=== PATIENT | female | born 1950 | race Caucasian/White ===

== ENCOUNTER 2024-06-03 00:38 | Day surgery (SDC) | payer MEDICARE, SELFPAY ==
[2024-05-05 15:23] VITALS: BMI 31.8
--- NOTE | 2024-05-05 15:44 | PC.NURSE ---
Addendum entered by Awilda Craven RN 05/20/24 13:59: Pt called with new date and time of rescheduled surgery for 09:00am arrival on 06/03/24 and surgery at 11:00am. No medication or status changes since last assessment. Patients may have clear liquids (water, carbonated beverages, clear teas, apple juice) until 3 hours prior to surgery with a maximum of 20 ounces. - No food from midnight until time of surgery and no smoking. This includes no chewing gum, candy or mints. (0800am) \ Take only the following medications with a SIP of water on the morning of surgery: Buspirone, Duloxetine and Metoprolol DO NOT STOP ANY OF YOUR OTHER PRESCRIPTION MEDICATIONS PRIOR TO SURGERY EXCEPT THE FOLLOWING Medications to discontinue per physician Hold all vitamins and supplements for [address] Taveras Date to take last dose 05/26/24 Original Note: Report to the Outpatient Waiting Room, entrance under the green pavilion located off [facility], at time on date . Planned Procedure Time: .? Time changes happen often and if your time is changed the preop area will call you the afternoon before. - You and your visitor will be asked to self-screen and do not enter if you have any COVID symptoms. Please call surgeon if you need to reschedule. - A mask is optional within the hospital at this time. Patients may have clear liquids (water, carbonated beverages, clear teas, apple juice) until 3 hours prior to surgery with a maximum of 20 ounces. - No food from midnight until time of surgery and no smoking. This includes no chewing gum, candy or mints. (0830am) \ Take only the following medications with a SIP of water on the morning of surgery: Busprione, Duloxetine and Metoprolol DO NOT STOP ANY OF YOUR OTHER PRESCRIPTION MEDICATIONS PRIOR TO SURGERY EXCEPT THE FOLLOWING Medications to discontinue per physician Hold all vitamins and supplements for [address] Taveras Date to take last dose 05/12/24 Please no make-up, nail eritrean, hairspray, perfume, deodorant, or body powder the day of surgery.? No jewelry (including any body piercings) or valuables the day of surgery, leave them at home.? Please take a shower or bath the night before, or the morning of, surgery with an antibacterial soap.? Wear comfortable, loose fitting clothing.? - Jewelry must be removed prior to entering the operating room.? Rings and piercings that are not removed may be cut off. - The hospital will not accept responsibility for valuables.? - Please leave all valuables, including medications, at home the day of surgery. If you are going home after surgery, a licensed fence post driver must drive you home.? - NO public transportation without another adult if you receive anesthesia. - We recommend that an adult stay with you for 24 hours following discharge. - We also recommend that you do not drive, make important decision, drink alcoholic beverages, or take any drugs that were not prescribed by your health care provider for at least 24 hours after your discharge time. Follow any additional instructions given to you from your surgeon. Telephone instructions given to __Patient and asked if any additional questions and then verbalized understanding. Patient advised to call surgeon office or pre surgery nurse liaison [phone] if any additional questions.
--- NOTE | 2024-05-13 20:44 | PM.IMHP ---
H&P: HPI History of Present Illness Date/Time: 05/13/24 20:44 Chief Complaint: mixed UI Narrative: treatment to ISD Review of Systems Review of Systems: All systems reviewed & are unremarkable except as noted in HPI and below PMFSH Social History Social History Smoking packs per day: 1 Smoking cigarettes per day: 20.0 Years smoked: 40 Smoking pack-years: 40.00 Smoking status: Former smoker Substance use: never Living arrangements: alone Spiritual care concerns: No Meds Home Medications and Allergies Home Medications ?Medication ?Instructions ?Recorded ?Confirmed ?Type acetaminophen 650 mg 1,300 mg PO Q12H PRN pain 05/05/24 05/05/24 History tablet,extended release (8 Hour Pain Reliever) bupropion HCl 150 mg 24 hr tablet, 150 mg PO DAILY 05/05/24 05/05/24 History extended release bupropion HCl 300 mg 24 hr tablet, 300 mg PO DAILY 05/05/24 05/05/24 History extended release docusate sodium 100 mg capsule 100 mg PO DAILY 05/05/24 05/05/24 History (Colace) duloxetine 60 mg capsule,delayed 120 mg PO HS 05/05/24 05/05/24 History release lamotrigine 100 mg tablet 100 mg PO HS 05/05/24 05/05/24 History levothyroxine 25 mcg tablet 25 mcg PO DAILY 05/05/24 05/05/24 History losartan 50 mg tablet 50 mg PO DAILY 05/05/24 05/05/24 History meloxicam 15 mg tablet 15 mg PO DAILY 05/05/24 05/05/24 History metoprolol succinate 100 mg 200 mg PO DAILY 05/05/24 05/05/24 History tablet,extended release 24 hr omeprazole 40 mg capsule,delayed 40 mg PO DAILY 05/05/24 05/05/24 History release pravastatin 20 mg tablet 20 mg PO HS 05/05/24 05/05/24 History solifenacin 10 mg tablet 10 mg PO HS 05/05/24 05/05/24 History Allergies Allergy/AdvReac Type Severity Reaction Status Date / Time morphine Allergy Severe unresponsiv Verified 05/05/24 15:52 e Penicillins Allergy Severe water Verified 05/05/24 15:52 blisters amlodipine Allergy Intermediate Swelling Verified 05/05/24 15:52 cephalexin (From Keflex) Allergy Intermediate rash Verified 05/05/24 15:52 povidone-iodine (From Allergy Intermediate rash Verified 05/05/24 15:52 Betadine) stainless steel Allergy Intermediate infection Verified 05/05/24 15:52 Sulfa (Sulfonamide Allergy Intermediate water Verified 05/05/24 15:52 Antibiotics) blisters erythromycin base Allergy vomiting Verified 05/05/24 15:52 Exam Narrative: NAD A+O x3 normal breathing Assessment and Plan Assessment and plan (1) Intrinsic sphincter deficiency (ISD): Code(s): N36.42 - Intrinsic sphincter deficiency (ISD) Status: Acute Assessment and Plan: cysto/bulking agent
--- NOTE | 2024-06-03 04:39 | WPDHPUPDATE1 ---
History and Physical Update Update Date/Time: 06/03/24 04:39 History and Physical has been reviewed, including an updated exam of the patient. There are NO changes in the patient's condition. Risks, benefits, and alternatives have been discussed and questions answered. Patient agrees to proceed with procedure.
--- OUTSIDE RECORDS SUMMARY | 2024-06-03 06:24 | XMS_ITS | Data Portability ---
Author Organization [facility] Jermaine Kim Address [address] [facility] [address] [facility] [place] [address] Care Team Providers Care Shoe Shanker Name Role Phone JACKELIN SOLIS Transition Coach WAN KURTZ Vocational Trainer SILVANA PURI Orthopedic Surgeon DILIP HAYES Hand Surgeon GABBY JAFFE Primary Care Provider SILVANA Barreto Orthopedic Surgeon [phone] Assessment Encounter Date Assessment Date Assessment LastModified by Organization Details LastModified Time 10/08/2023 10/08/2023 mammogram scheduled. Due for cologuard this fall Not available 10/08/2023 14:38:29 05/13/2024 05/13/2024 [facility]. Katlyn. Not available 05/13/2024 13:19:09 Plan of Treatment Reminders Order Date Submit Date Provider Last Modified By Organization Details Last Modified Time Details Appointments None recorded. Lab urinalysis, complete 2022 023 [facility], [address], [address], [place], [address], 3 13:23:27 lipid panel, serum 2022 023 [facility], [address], [address], [place], [address], 3 13:23:25 CMP, serum or plasma 2022 023 [facility], [address], [address], [place], [address], 3 13:23:26 CBC w/ auto diff 2022 023 [facility] [employer] [facility], [address], [address], [place], [address], 3 13:23:27 TSH + free T4, serum 2022 023 [facility] [employer] [facility], [address], [address], [place], [address], 3 13:23:26 fecal occult blood, immunoassay , stool 2023 024 [facility], [address] [place] [address], [address], [place], [address], 4 03:09:03 herpes simplex, culture, unspecified specimen 2023 024 [facility] [facility], [address], [address], [place], [address], 4 10:57:43 culture, aerobic 2023 024 [facility], [address], [address], [place], [address], 4 15:45:38 noninvasive colorectal cancer DNA + occult blood screening, QL, stool 2023 024 [facility] ([facility]ard Orders Only), [address], [address], [place], [address], 4 11:27:00 influenza virus A + B + SARS-CoV-2 (COVID19) Ag panel, rapid IA, upper respiratory specimen 2024 025 In-Office Order, Internal Use Only DO Not Attach Compendium DO Not Attach Compendium, Do Not Delete/merge, [id number] 5 13:22:10 Referral otolaryngol ogist referral 2023 024 GEORGINA Hanna MD, [address], [place], [address], 4 23:12:50 hand surgeon referral 2023 024 GEORGINA Horowitz MD, [facility] , [address], [place], [address], 4 11:12:17 physical therapist referral 2024 025 [facility], [address] [place] [address] , [address], [place], [address], 5 10:31:11 physical therapist referral 2024 025 [facility], [facility] , [place], [address], 5 10:31:10 Procedures lower extremity nerve conduction study (PROC) 2022 023 [facility] -Nerve Conduction Study, [address] [place] [address] , [address], [place], [address], 4 23:11:09 cryosurgery (PROC) 2022 023 [facility] Not available 3 12:29:28 Surgeries None recorded. Imaging bone density - bone density at [place] 12/2019 for comparison 2022 023 [facility] Centralized Scheduling, Centralized Scheduling, [facility] , [place], [address], 4 16:31:03 XR, toe(s) 2023 024 [facility] Patient [facility] Centralized Scheduling, Centralized Scheduling, [address] [facility] , [place], [address], 4 12:20:24 XR, hip, unilateral, 2 or 3 view 2024 025 [facility] ([facility]), [address] [place], [address], 5 10:31:11 Medication Orders valacyclovi r 1 gram tablet 2023 024 [id number], [address] [place], [place], [id number], 4 13:52:47 metoprolol succinate ER 100 mg tablet,exte nded release 24 hr 2023 024 [facility] #[id number], [address] [place], [place], [id number], 4 14:18:11 Paxlovid 300 mg (150 mg x 2)-100 mg tablets in a dose pack 2024 025 [facility] #[id number], [address] [place], [place], [id number], 5 09:42:10 Patient TargetsNo targets recorded. Patient Instructions Encounter Date Encounter Id Patient Instructions Last Modified By Organization Details Last Modified Time 04/21/2023 [id number] advance care planning: care instructions Not available 04/21/2023 12:17:03 preventing falls : care instructions Not available 04/21/2023 12:17:04 Medicare [facility] Preventive Checklist Not available 04/21/2023 12:17:04 eating healthy foods: care instructions Not available 04/21/2023 12:17:03 A healthy lifestyle: care instructions Not available 04/21/2023 12:17:04 04/05/2024 [id number] advance care planning: care instructions Not available 04/05/2024 14:18:00 preventing falls : care instructions Not available 04/05/2024 14:18:00 [facility] Not available 04/05/2024 14:18:00 eating healthy foods: care instructions Not available 04/05/2024 14:18:00 AD8 Dementia Screening Interview Not available 04/05/2024 14:18:00 Reason for Referral Cafeteria Manager Referral fo r Lesion of tongue Referring Physician: Gabby Jaffe [facility], Encounter Date: 01/22/2024 Hand Surgeon Referral for 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 Referring Physician: Gabby Jaffe [facility] Sissy, Encounter Date: 04/05/2024 Physical Therapist Referral for Impairment of balance Referring Physician: Gabby Jaffe [facility], Encounter Date: 05/13/2024 Physical Therapist Referral for Pain of left hip joint Referring Physician: Gabby Jaffe [facility], Encounter Date: 05/13/2024 Results Created Date Observation Date Name Description Value Unit Range Abnormal Flag Note LastModifiedBy Organization Detail LastModifiedTime 04/23/2004/25/2023 LIPID PANEL , STAND JOHN cholesterol, total TNP TEST NOT PERFO RMED No serum recei lin. Not Available [facility] [address] [place], [address], 04/25/2023 13:23:25 04/23/20 23 04/25/2023 LIPID PANEL , STAND JOHN HDL cholesterol TNP TEST NOT PERFO RMED No serum recei lin. Not Available [facility] [address] [place], [address], 04/25/2023 13:23:25 04/23/20 23 04/25/2023 LIPID PANEL , STAND JOHN triglyceride s TNP TEST NOT PERFO RMED No serum recei lin. Not Available [facility] [address] [place], [address], 04/25/2023 13:23:25 04/23/20 23 04/25/2023 LIPID PANEL , STAND JOHN LDL-choleste rol TNP TEST NOT PERFO RMED No serum recei lin. Not Available [address] [place], [address], 04/25/2023 13:23:25 04/23/20 23 04/25/2023 LIPID PANEL , STAND JOHN chol/HDLC ratio TNP TEST NOT PERFO RMED No serum recei lin. Not Available [address] [place], [address], 04/25/2023 13:23:25 04/23/20 23 04/25/2023 LIPID PANEL , STAND JOHN non HDL cholesterol TNP TEST NOT PERFO RMED No serum recei lin. Not Available [address], [address], 04/25/2023 13:23:25 04/23/20 23 04/25/2023 TSH+F REE T4 TSH TNP TEST NOT PERFO RMED No serum recei lin. Not Available [address], [address], 04/25/2023 13:23:26 04/23/20 23 04/25/2023 TSH+F REE T4 T4, free TNP TEST NOT PERFO RMED No serum recei lin. Not Available [address] [address] [place], [address], 04/25/2023 13:23:26 04/23/20 23 04/25/2023 COMPR EHENS VANI METAB OLIC PANEL glucose TNP TEST NOT PERFO RMED No serum recei lin. Not Available [address] [place], [address], 04/25/2023 13:23:26 04/23/20 23 04/25/2023 URINA LYSIS , COMPL ETE color YELLOW yellow normal Not Available [address], [address], 04/25/2023 13:23:27 04/23/20 23 04/25/2023 URINA LYSIS , COMPL ETE appearance CLEAR clear normal Not Available [address], [address], 04/25/2023 13:23:27 04/23/20 23 04/25/2023 URINA LYSIS , COMPL ETE specific gravity 1.009 1.001- 1.035 normal Not Available [address], [address], 04/25/2023 13:23:27 04/23/20 23 04/25/2023 URINA LYSIS , COMPL ETE pH 5.5 5.0-8. 0 normal Not Available [address], [address], 04/25/2023 13:23:27 04/23/20 23 04/25/2023 URINA LYSIS , COMPL ETE glucose NEGATI VE negati ve normal Not Available [address], [address], 04/25/2023 13:23:27 04/23/20 23 04/25/2023 URINA LYSIS , COMPL ETE bilirubin NEGATI VE negati ve normal Not Available [address], [address], 04/25/2023 13:23:27 04/23/20 23 04/25/2023 URINA LYSIS , COMPL ETE ketones NEGATI VE negati ve normal Not Available [address], [address], 04/25/2023 13:23:27 04/23/20 23 04/25/2023 URINA LYSIS , COMPL ETE occult blood NEGATI VE negati ve normal Not Available [address], [address], 04/25/2023 13:23:27 04/23/20 23 04/25/2023 URINA LYSIS , COMPL ETE protein NEGATI VE negati ve normal Not Available [address], [address], 04/25/2023 13:23:27 04/23/2004/25/2023 URINA LYSIS , COMPL ETE nitrite NEGATI VE negati ve normal Not Available [address], [address], 04/25/2023 13:23:27 04/23/20 23 04/25/2023 URINA LYSIS , COMPL ETE leukocyte esterase NEGATI VE negati ve normal Not Available [address], [address], 04/25/2023 13:23:27 04/23/20 23 04/25/2023 URINA LYSIS , COMPL ETE WBC NONE SEEN /hpf < or = 5 normal Not Available [address], [address], 04/25/2023 13:23:27 04/23/20 23 04/25/2023 URINA LYSIS , COMPL ETE RBC NONE SEEN /hpf < or = 2 normal Not Available [address], [address], 04/25/2023 13:23:27 04/23/20 23 04/25/2023 URINA LYSIS , COMPL ETE squamous epithelial cells 0-5 /hpf < or = 5 Not Available [address], [address], 04/25/2023 13:23:27 04/23/20 23 04/25/2023 URINA LYSIS , COMPL ETE bacteria NONE SEEN /hpf none seen normal Not Available [address], [address], 04/25/2023 13:23:27 04/23/20 23 04/25/2023 URINA LYSIS , COMPL ETE hyaline cast NONE SEEN /lpf none seen normal Not Available [facility] [address] [address] [place], [address], 04/25/2023 13:23:27 04/23/20 23 04/25/2023 CBC (INCL UDES DIFF/ PLT) white blood cell count TNP TEST NOT PERFO RMED No laven jackelyn-t op tube recei lin. Not Available [facility] [address] [address] [place], [address], 04/25/2023 13:23:27 01/22/20 24 01/26/2024 TEST IN QUEST ION - NO TEST ON CONTA INER question/pro blem: No test( s) are indic ated on the requi sitio n for the follo wing irrep lacea ble speci men. Pleas e provi de the test code( s) and corre spond ing test name( s) in your respo nse. Not Available [facility] [address] [address] [address] , [place], [address], 01/26/2024 10:57:42 01/22/20 24 01/26/2024 TEST IN QUEST ION - NO TEST ON CONTA INER specimen(s) received: Viral media transp ort (ambie nt) Pleas e conta ct [facility] to arran ge for an alter nativ e HSV test for this patie nt which can be perfo rmed on the room tempe ratur e viral media trans port (VCM) submi tted. Not Available [facility] [address] [address] [place], [address], 01/26/2024 10:57:42 01/22/20 24 01/26/2024 TEST IN QUEST ION - NO TEST ON CONTA INER contact: * Not Available [address], [address], 01/26/2024 10:57:42 01/22/20 24 01/26/2024 TEST IN QUEST ION - NO TEST ON CONTA INER comment REQUE STED INFOR MATIO N ___ AUTHO RIZED SIGNA TURE ____ TO PREVE NT FURTH ER DELAY S IN TESTI NG, AYLIN E COMPL ETE INFOR MATIO N ABOVE AND FAX TO [phone] TO RESOL VE THIS ORDER . Not Available [address], [address], 01/26/2024 10:57:42 01/22/20 24 02/09/2024 NOAH Leon SIMPL EX VIRUS CULTU RE source NASAL Not Available [address], [address], 02/09/2024 18:06:32 01/22/20 24 02/09/2024 NOAH Leon SIMPL EX VIRUS CULTU RE hsv culture: SEE NOTE NOAH Leon SIMPL EX VIRUS CULT RESUL T Not [place] [facility] Refer ence Range : Not [place] [facility] Not Available [address] [address] [facility] [facility], [place], [address], 02/09/2024 18:06:32 01/22/20 24 02/09/2024 HERPE S SIMPL EX VIRUS CULTU RE source: TNP TEST NOT PERFO RMED. Speci men recei lin at room tempe ratur e. Not Available [address] [address] [address] , [place], [address], 02/09/2024 18:06:32 01/22/20 24 01/26/2024 MRSA CULTU RE SCREE N MRSA culture screen SEE NOTE abnormal MRSA CULTU RE SCREE N Micro Numbe r: [id number] Test Statu s: Final Speci men Sourc e: Nasal Speci men Quali ty: Adequ ate Resul t: Methi cilli n resis tant Staph yloco ccus aureu s (MRSA ) isola cirilo. Not Available [address] [address] [place], [address], 01/26/2024 10:57:44 01/22/20 24 01/27/2024 TEST AUTHO RIZAT ION test name: HERPES SIMPLE X VIRUS Not Available [address] [address] [place], [address], 01/27/2024 18:09:11 01/22/20 24 01/27/2024 TEST AUTHO RIZAT ION test code: [id number] Not Available [address] [address] [place], [address], 01/27/2024 18:09:11 01/22/20 24 01/27/2024 TEST AUTHO RIZAT ION client contact: JANE STEPHEN Not Available [address] [address] [place], [address], 01/27/2024 18:09:11 01/22/20 24 01/27/2024 TEST AUTHO RIZAT ION report always message signature The labor atory testi ng on this patie nt was verba lly reque sted or confi rmed by the order lola morse or his or her autho rized repre senta tive after conta ct with an emplo levin of [facility] ost[facility]ivek sHaris Dempseyer al regul ation s requi re that we maint ain on file writt en autho rizat ion for all labor anitra testisa ng. Accor dingl y we are askin g that the order lloa morse or his or her autho rized repre senta tive sign a copy of this repor t and promp tly retur n it to the clien t servi ce repre senta tive. Signa ture: __ Not Available [facility] [address], [address], 01/27/2024 18:09:11 01/22/20 24 01/27/2024 TEST AUTHO RIZAT ION comment Fax collins r: [phone] Not Available [facility] [employer] [address], [address], 01/27/2024 18:09:11 04/13/20 24 04/13/2024 COLOG UARD cologuard result reportable NEGATI VE negati ve normal NEGAT VANI TEST RESUL T. A negat vani Colog uard resul t indic ates a low likel ihood that a color ectal cance r (CRC) or advan johan adeno ma (olinda omato us polyp s with more advan johan pre-m align ant featu res) is prese nt. The chanc e that a perso n with a negat vani Colog uard test has a color ectal cance r is less than 1 in 1500 (nega tive predi ctive value >99.9 %) or has an advan johan adeno ma is less than 5.3% (nega tive predi ctive value 94.7% ). These data are based on a prosp ectiv e cross -sect ional study of 10,00 0 indiv idual s at [facility] ge risk for color ectal cance r who were scree juvencio with both Colog uard and colon oscop y. (Aurea Edmond et al, N Engl J Med 2014; 370(1 4):12 86-12 97) The shanelle l value (refe rence range ) for this assay is negat vani. COLOG UARD RE-SC REENI NG RECOM MENDA TION: Perio dic color ectal cance r scree spenser is an impor tant part of preve ntive healt hcare for asymp tomat ic indiv idual s at ryan ge risk for color ectal cance r. Follo wing a negat vani Colog uard resul t, the Ameri can Cance r Socie ty and U.S. Multi -Soci ety Task Force scree spenser guide lines recom mend a Colog uard re-sc reeni ng inter josh of 3 years . Refer ences : Ameri can Cance r Socie ty Guide line for Color ectal Cance r Scree spenser: https ://renny w.can cer.o rg/ca ncer/ colon -rect al-ca ncer/ detec tion- diagn osis- stagi ng/ac s-rec ommen datio ns.ht ml.; David ELI, Ena armstrong CR, Jerry LI, Color ectal Cance r Scree spenser: Recom menda tions for Physi cians and Patie nts from the U.S. Multi -Soci ety Task Force on Color ectal Cance r Scree spenser , Am Giovanny Gastr oente rolog y 2017; 112:1 016-1 030. TEST DESCR IPTIO N: [place] site algor ithmi c michelle sis of stool DNA-b iomar kers with hemog lobin immun oassa y. Quant itati ve value s of indiv idual bioma rkers are not repor table and are not assoc iated with indiv idual bioma rker resul t refer ence range s. Colog uard is inten ded for color ectal cance r scree spenser of adult s of eithe r sex, 45 years or older , who are at [facility] for color ectal cance r (CRC) . Colog uard has been appro lin for use by the U.S. FDA. The perfo rmanc e of Colog uard was estab lishe d in a cross secti onal study of [facility] adult s aged 50-84 . Colog uard perfo rmanc e in patie nts ages 45 to 49 years was estim ated by sub-g tariqp michelle sis of near- age group s. Colon oscop ies perfo rmed for a posit vani resul t may find as the most clini lima signi julianne t pieter n: color ectal cance r [4.0% ], advan johan adeno ma (incl uding sessi le [place] cirilo polyp s great er than or equal to 1cm diame ter) [20%] or non- advan johan adeno ma [31%] ; or no color ectal neopl jt [45%] . These estim ates are deriv ed from a prosp ectiv e cross -sect ional scree spenser study of 0 indiv idual s at [facility] risk for color ectal cance r who were scree juvencio with both Colog uard and colon oscop y. (Aurea Leon al, N Engl J Med 2014; 370(1 4):12 86-12 97.) Colog uard may produ ce a false negat vani or false posit vani resul t (no color ectal cance r or preca ncero us polyp prese nt at colon oscop y follo w up). A negat vani Colog uard test resul t does not guara ntee the absen ce of CRC or advan johan adeno ma (pre- cance r). The curre nt Colog uard scree spenser inter josh is every 3 years . (Amer ican Cance r Socie ty and U.S. Multi -Soci ety Task Force ). Colog uard perfo rmanc e data in a 0 patie nt pivot al study using colon oscop y as the refer ence metho d can be acces sed at the follo wing locat ion: www.e xactl abs.c om/re dilip . Addit ional descr iptio n of the Colog uard test proce ss, warni ngs and preca ution s can be found at www.c janelleogduane sharmad.c om. Not Available [facility] (Cologuard Orders Only) [address], [place], [address], 04/20/2024 11:26:59 05/13/19 25 05/13/2024 influ phuong virus A + B + SARS- CoV-2 (COVI D19) Ag panel , rapid IA, upper respi rator y speci men Flu A negati ve Not Available In-Office Order Internal Use Only DO Not Attach Compendium DO Not Attach Compendium, Do Not Delete/merge, [id number] 05/13/2024 12:59:31 05/13/19 25 05/13/2024 influ phuong virus A + B + SARS- CoV-2 (COVI D19) Ag panel , rapid IA, upper respi rator y speci men Flu B negati ve Not Available In-Office Order Internal Use Only DO Not Attach Compendium DO Not Attach Compendium, Do Not Delete/merge, [id number] 05/13/2024 12:59:31 05/13/19 25 05/13/2024 influ phuong virus A + B + SARS- CoV-2 (COVI D19) Ag panel , rapid IA, upper respi rator y speci men Rapid SARS CoV 2 Ag, QL IA, respiratory specimen positi ve Not Available In-Office Order Internal Use Only DO Not Attach Compendium DO Not Attach Compendium, Do Not Delete/merge, [id number] 05/13/2024 12:59:31 04/15/20 23 nmens 1d [facility] [address] [facility] [place] [address] Myocar dial Perfus ion Imagin g Pat.Na me: AMIRA ÁLVAREZ.ID : [id number]: 023 Refer. MD: Parent Exam Time: 9:49:0 0 AM Study Type:S EB NC HT MUSCLE IMAGE SPECT MULTI Height : 61 in Weight : 163 lb BSA: 1.73 m2 Age: [birth year]73 Y Sex: F Sonogr phr: Hetal lawson, SURVEYOR HELPER Pat. Stat.: Outpat ient Reason for Study: Shortn ess of breath , Chest pain Histor y / Clinic al:Dys lipide joseline, Hypert ension , GERD, Ex-Smo ker, Sleep Apnea, Hypoth yroidi sm Proced ures: Nuclea r Stress Test with Lexisc an Race: W Surger y: None ++++++ ++++++ ++++++ ++++++ ++++++ ++++++ SUMMAR Y: ++++++ ++++++ ++++++ ++++++ ++++++ ++++++ Stress conclu rodolfo: 1. Clinic ally negati ve. 2. Electr ocardi ograph ically negati ve stress test for ischem ia. 3. Scinti graphi c images to follow . Perfus ion conclu rodolfo: 1. Good study qualit y. Restin g and stress motion correc tion was applie d to images . No attenu ation is noted. Prone imagin g was perfor med. 2. Normal myocar dial perfus ion SPECT imagin g. 3. Normal wall motion with an ejecti on fracti on of 69%. 4. Stress test with myocar dial perfus ion imagin g shows overal l low risk for a cardia c event. ++++++ ++++++ ++++++ ++++++ ++++++ ++++++ FINDIN GS: ++++++ ++++++ ++++++ ++++++ ++++++ ++++++ Protoc ol: Lexisc an 0.4mg was given as a rapid inject ion IV over a period of 10 second s with the radiop harmac eutica l inject ed at 20 second s. The images were proces sed using the standa rd SPECT techni que. A gated study was perfor med on the stress images . Impres rodolfo: SPECT images demons trate normal perfus ion of normal intens ity. Heart Size: The left ventri mahesh is normal . LV Wall Motion : The LVEF is calcul ated to be 69%. Gated SPECT images reveal normal wall motion . Transi ent Ischem ic Dilata tion: The TID is 0.73. There is no eviden ce of Transi ent Ischem ic Dilata tion. ++++++ ++++++ ++++++ ++++++ ++++++ ++++++ STRESS : ++++++ ++++++ ++++++ ++++++ ++++++ ++++++ Baseli ne Vital Signs: ECG: Sinus rhythm , non-sp ecific ST-T wave change s HR: 75 bmp Rest BP: 140/71 Regade noson with low level exerci se Peak Dose: 0.4 mg Durati on: 07:56 min:se c Stress Test Result s: Max HR: 108 bmp Target HR: 147 bmp % Target : 73 % Max BP: 160/60 Max RPP: 35992 O2 sat: 99 % Sympto ms and Compli cation s: Termin ated: Protoc ol comple cirilo Sympto ms: None Compli cation s: None Other: Bev t was schedu led for a treadm ill test but was unable to reach target heartr ate, theref ore test was switch ed to Lexisc an. Stress ECG Interp : Sinus tachyc ardia, Negati ve 2022 02:16 PM Kari burden M.D. [facility] [address] [facility], [place], [address], 04/15/2023 17:28:26 04/15/20 23 use echoc ardio gram W con [facility] [place] [address] Echoca rdiogr aphy Report Pat.Na me: AMIRA ÁLVAREZ Pat.ID : [id number]: 023 Refer. MD: [id number] KARIME POOLEFEDERICO VASQUEZ EWDPRO V EWDPRO V Exam Time: 8:14:0 0 AM Study Type:E CHO WITH CARDIA C DOPPLE R COMP Height : 61 in Weight : 163 lb BSA: 1.73 m2 Age: [birth year],73 Y Sex: F BP: 127/64 HR: 66 bpm Sonogr phr: Shannon , Addisa josette RDCS Pat. Stat.: Outpat ient Reason for Study: GAVIN Proced ures: 2D, M-mode , Dopple r, Color Flow, Defini ty was used to enhanc e endoca rdial defini tion. The study qualit y is technisa turner lulu. Race: W ++++++ ++++++ ++++++ ++++++ ++++++ ++++++ SUMMAR Y: ++++++ ++++++ ++++++ ++++++ ++++++ ++++++ The left ventri cular size is normal . Estima cirilo left ventri cular ejecti on fracti on is 60-65% . There is no left ventri cular hypert rophy. Left ventri cular diasto lic functi on is normal . The right ventri cular size is normal . Right ventri cular systol ic functi on is normal . The left atrial volume is normal ( less than 34 ml/M2) . Right atrial size is normal . Trace mitral regurg itatio n. A trace of tricus pid regurg itatio n. Right ventri cular systol ic pressu re is not reliab ly assess ed. ++++++ ++++++ ++++++ ++++++ ++++++ ++++++ FINDIN GS: ++++++ ++++++ ++++++ ++++++ ++++++ ++++++ LV: The left ventri cular size is normal . Estima cirilo left ventri cular ejecti on fracti on is 60-65% . There is no left ventri cular hypert rophy. Left ventri cular diasto lic functi on is normal . WM: Wall motion appear s normal in all segmen ts. RV: The right ventri cular size is normal . Right ventri cular systol ic functi on is normal . IVS: No eviden ce of ventri cular septal defect . LA: The left atrial size is normal . The left atrial volume is normal ( less than 34 ml/M2) . RA: Right atrial size is normal . IAS: Atrial septum appear s intact . JADYN: No eviden ce of perica rdial effusi on. AO: Normal aortic root. PA: Estima cirilo right atrial pressu re of 3 mmHg. SVn: Inferi or vena cava is normal . Inferi or vena cava shows >50% collap se with respir ation consis tent with normal right atrial pressu re. AV: The aortic valve is trilea flet. No eviden ce of aortic valve stenos is. No eviden ce of aortic regurg itatio n. MV: Trace mitral regurg itatio n. No eviden ce of mitral valve stenos is. PV: No pulmon ic regurg itatio n. No eviden ce of pulmon ic valve stenos is. TV: A trace of tricus pid regurg itatio n. Right ventri cular systol ic pressu re is not reliab ly assess ed. No eviden ce of tricus pid valve stenos is. ++++++ ++++++ ++++++ ++++++ ++++++ ++++++ MEASUR EMENTS : ++++++ ++++++ ++++++ ++++++ ++++++ ++++++ DOPPLE R LVOT LVOTpk PG 4 mmHg LVOTmn PG 2 mmHg LVOTpk Huang 99.8 cm/s (70-11 0)+ LVOT SV 62 ml LVOT TVI 21.7 cm Pulmon yves Veins PVnpkV els 64.8 cm/s PVn A Dur 127 msec AV Forwar d Flow AV TVI 28.1 cm AV pkPG 7 mmHg AV pkVel 132 cm/s (100-1 70)+ Area (TVI) 2.19 cm2 (3-5)* AV mnPG 4 mmHg Area (Uhang) 2.15 cm2 (3-5)* MV Forwar d Flow MV DeTm 239 msec MV pkE 95.6 cm/s (60-13 0) MV E/A 0.9 MV pkA 106 cm/s PV Forwar d Flow PV pkVel 90.4 cm/s (60-90 )+* PV AC 129 msec PV pkPG 3 mmHg TV Regurg Flow TV pkPG 18 mmHg TV pkVel 214 cm/s (30-70 )* TV Forwar d Flow TV pkE 53.4 cm/s Lat E' Lat e 10.2 cm/s Lat E/E' Lat E/e 9.4 Med E' Med e 7.18 cm/s Med E/E' Med E/e 13.3 Aortic Valve Aortic Valve Ar 1.27 Aortic Valve Ve 0.76 Hepati c Vein Hepati c Vein Di 41.7 cm/s PV Antegr marcio Flow Accele ration Sl 641 cm/s2 Right Atrium Simpso n's Disk 20 Right Ventri mahesh Right Ventri mahesh 11.7 cm/s 2D Left Ventri mahesh LVIDd 4.51 cm (3.6-5 .2) LV ESV 22.2 ml LVIDs 2.89 cm (2.3-3 .9) LV ESV 22.4 ml LngAxd 6.57 cm LVESV BP 22.3 ml LngAxd 7.12 cm LV EF 52.9 % LV EDV 47.1 ml LV EF 71.4 % LV EDV 78.4 ml LV EF BP 64.7 % LVEDV BP 63.1 ml LV SV 24.9 ml LngAxs 5.42 cm LV SV 56 ml LngAxs 5.45 cm LV SV BP 40.8 ml LVPW LVPWd 0.9 cm Right Ventri mahesh RVIDd 3 cm (2.6-4 .3) Right Ventri mahesh 23 mm Right Ventri mahesh 25.5 mm Right and Left 0.665 Major [place] 69 mm Ventri cular Septum IVSd 0.981 cm Left Atrium LA VOLBP 30.8 ml Aorta Ao Rtd 2.7 cm LVOT LVOT 1.9 cm LVOTAr ea 2.84 cm2 Ratios IVS LA Biplan e LAVol I BP 17.8 ml/m2 RA Single Plane Right Atrium MO 9.78 mm Right Atrium Sy 21.6 ml Right Atrium Sy 53.5 mm Right Atrium Sy 12.5 ml/m2 Right Atrium Sy 11.6 cm2 MMODE Aorta Ao Rt 2.9 cm (zsc 0.7) TA Tricus pid Annul 25.1 mm 2022 02:51 PM Kari burden M.D. [facility] [address] [facility], [place], [address], 04/15/2023 17:28:27 05/25/19 24 05/22/2023 lower extre mity nerve condu ction study (PROC ) No observ ation record ed. [facility] Emg -Nerve Conduction Study [address], [place], [address], 05/27/2023 12:04:52 06/30/19 24 06/30/2023 bone densi ty No observ ation record ed. [address], [address], 07/01/2023 14:32:12 10/20/19 24 10/20/2023 MAMMO , scree spenser, tomos ynthe sis, bilat eral No observ ation record ed. [address], [address], 10/26/2023 15:07:46 10/28/19 24 10/28/2023 US, breas t, unila teral No observ ation record ed. [address], [address], 10/31/2023 12:05:32 10/28/19 24 10/28/2023 MAMMO , diagn ostic , unila teral No observ ation record ed. [address], [address], 10/31/2023 12:05:32 10/30/19 24 nm bone scan 3 phase [facility] [place] [address] Three- Phase and Whole- Body Bone Scinti graphy Exam date: 024. Histor y: 73-yea r-old female with painfu l right revers e total should er replac ement. The patien t has a histor y of bilate ral should er replac ement surger y x2, most recent ly right should er body year ago. The patien t fell approx imatel y 3 weeks ago and has a histor y of multip le falls over the past severa l years. Radiop harmac eutica l: 24.7 mCi of Tc-99m MDP IV. Compar davidson: -Right should er x-rays dated 10/15/19 24. -Previ ous 3 phase and whole body bone scinti graphy study dated 023. Techni que: A three- phase examin ation of the right should er/upp er thorax was perfor med consis ting of radion uclide angiog tram, immedi ate post inject ion images , and delaye d images . In additi on, delaye d anteri or and proof coin collector ior whole- body images , and latera l images of the skull and cervic al spine were obtain ed. Findin gs: There is no abnorm ally increa sed activi ty in the right should er on the blood flow or blood pool images to sugges t acute fractu re, acute infect ion, or signif icant prosth esis loosen ing. The delaye d images reveal mild to modera te uptake around the compon ents of the patien t's right should er arthro plasty which may be reacti ve. Mild prosth esis loosen ing cannot be exclud ed. The delaye d images also reveal uptake around the compon ents of the patien t's left should er arthro plasty which are most likely reacti ve. Additi onal findin gs on the whole body delaye d images includ e change s consis tent with bilate ral knee arthro plasti es, bandli ke region of increa sed tracer accumu lation in the mid lumbar spine which may be second yves to degene rative diseas e, uptake in a patter n consis tent with degene rative diseas e in the elbows , cervic al/tho racic/ lumbar spine, hips, ankles , and feet (left greate r than right) IMPRES RODOLFO: 1. No abnorm ally increa sed activi ty in the right should er on the blood flow or blood pool images to sugges t acute fractu re, acute infect ion, or signif icant prosth esis loosen ing. The delaye d images reveal mild to modera te uptake around the compon ents of the patien t's right should er arthro plasty which may be reacti ve. Mild prosth esis loosen ing cannot be exclud ed. Compar davidson to follow -up plain films of the right should er may be helpfu l for furthe r evalua tion. 2. The delaye d images also reveal uptake around the compon ents of the patien t's left should er arthro plasty which are most likely reacti ve. Additi onal findin gs on the whole body delaye d images includ e change s consis tent with bilate ral knee arthro plasti es, bandli ke region of increa sed tracer accumu lation in the mid lumbar spine which may be second yves to degene rative diseas e, uptake in a patter n consis tent with degene rative diseas e in the elbows , cervic al/tho racic/ lumbar spine, hips, ankles , and feet (left greate r than right) Referr ed By: SILVANA SUTTON [facility] onical ly Signed By: Siddhartha phan MD on 6:52 PM Interp reted By: Siddhartha phan MD, 024 6:45 PM [facility] [address] [facility], [place], [address], 10/31/2023 20:19:15 10/30/19 24 10/30/2023 NM, bone scan No observ ation record ed. [address], [place], [address], 10/31/2023 20:19:08 01/25/20 24 01/22/2024 XR, toe(s ) No observ ation record ed. [address] [place], [address], 01/25/2024 22:40:43 02/10/20 24 01/25/2024 XR, toe(s ) No observ ation record ed. [facility] Patient Access Centralized Scheduling Centralized Scheduling [address] [place] [address] [place], [address], 02/13/2024 20:35:48 03/22/20 24 03/22/2024 elect rocar diogr am No observ ation record ed. [facility] [address] [place] [address] [place], [address], 03/25/2024 14:00:24 03/23/20 24 03/22/2024 elect rocar diogr am No observ ation record ed. [address], [address], 03/23/2024 13:15:09 03/25/20 24 03/22/2024 elect rocar diogr am No observ ation record ed. [address] [place], [address], 03/25/2024 14:00:24 03/25/20 24 03/22/2024 elect rocar diogr am No observ ation record ed. [address] [place], [address], 04/01/2024 12:26:04 05/02/20 24 05/02/2024 MAMMO , diagn ostic , unila teral No observ ation record ed. [address], [address], 05/03/2024 15:05:29 Result Notes None recorded. 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 2 12:04:41 Overacti ve urinary bladder 592313650 Active 2020 Not Available [facility] 2 12:04:41 Benign neoplasm of colon 60125761 Active 2012 Location : None;Sev erity: Moderate ;Progres s: Stable;A dded By: Angelia Galicia;Add to Current Problems : YES Not Available [facility] 2 12:04:41 Migraine variants 632044193 Completed 201207/18/2020 Location : None;Sev erity: Moderate ;Progres s: Stable;A dded By: Rc Aguilar;Add to Current Problems : NO FELICITAS Medina Attn: Accounting ,[address] [place], [address] , [facility] 1 14:31:05 Benign essentia l hyperten rodolfo 3226495 Completed 201207/14/2013 Location : None;Sev erity: Moderate ;Progres s: Stable;A dded By: Christie Orellana;Add to Current Problems : NO Not Available [facility] 7 08:47:41 Knee pain Completed 201411/13/2014 Location : None;Sev erity: Moderate ;Progres s: Stable;A dded By: Christie Orellana;Add to Current Problems : YES Not Available [facility] 7 08:47:41 Dietary manageme nt surveill ance Completed 201405/18/2019 Location : None;Sev erity: Moderate ;Progres s: Stable;A dded By: Christie Orellana;Add to Current Problems : YES FELICITAS Medina Attn: Accounting ,[address] [place], [address] , [facility] 0 13:04:10 Single major depressi ve episode, mild Completed 201404/02/2015 Location : None;Sev erity: Moderate ;Progres s: Stable;A dded By: Gabby Jaffe;Add to Current Problems : YES Not Available [facility] 7 08:47:41 Senile hyperker atosis 390333406 Completed 201310/13/2013 Location : None;Sev erity: Moderate ;Progres s: Stable;A dded By: Mamie Gibson;Add to Current Problems : NO Not Available [facility] 7 08:47:41 Shoulder joint pain 069793843 Completed 201205/26/2013 Location : None;Sev erity: Moderate ;Progres s: Stable;A dded By: Jo Ann Sosa;Add to Current Problems : NO Not Available [facility] 7 08:47:41 Knee pain Completed 201310/17/2013 Location : None;Sev erity: Moderate ;Progres s: Stable;A dded By: Jo Ann Sosa;Add to Current Problems : NO Not Available [facility] 7 08:47:41 Screenin g for cancer Completed 201409/11/2014 Location : None;Sev erity: Moderate ;Progres s: Stable;A dded By: Salvador Cortez;Kev armstrong to Current Problems : YES Not Available [facility] 7 08:47:41 Benign essentia l hyperten rodolfo 3846152 Active 2013 Location : None;Sev erity: Moderate ;Progres s: Stable;A dded By: Christie Orellana;Add to Current Problems : YES Not Available [facility] 2 12:04:41 Foreign body in ear 58198847 Completed 201509/23/2015 Location : None;Sev erity: Moderate ;Progres s: Stable;A dded By: Francesca Gutierrez;Add to Current Problems : YES Not Available [facility] 7 08:47:42 Edema 794483751 Completed 201402/17/2015 Location : None;Sev erity: Moderate ;Progres s: Stable;A dded By: Sherlyn Sousa; Add to Current Problems : YES Not Available [facility] 7 08:47:42 Shoulder joint pain 410950827 Completed 201203/12/2013 Location : None;Sev erity: Moderate ;Progres s: Stable;A dded By: Magui Adame;Add to Current Problems : NO Not Available [facility] 7 08:47:42 Acute upper respirat ory infectio n of multiple sites Completed 201208/28/2012 Location : None;Sev erity: Moderate ;Progres s: Stable;A dded By: Angelia Galicia;Add to Current Problems : NO Not Available [facility] 7 08:47:42 Periapic al abscess without sinus tract Completed 201203/12/2013 Location : None;Sev erity: Moderate ;Progres s: Stable;A dded By: Angelia Galicia;Add to Current Problems : NO Not Available [facility] 7 08:47:42 Allergic rhinitis caused by pollen 45422015 Completed 201204/28/2013 Location : None;Sev erity: Moderate ;Progres s: Stable;A dded By: Angelia Galicia;Add to Current Problems : NO Not Available [facility] 7 08:47:42 Cough 06322774 Completed 201309/08/2013 Location : None;Sev erity: Moderate ;Progres s: Stable;A dded By: Angelia Galicia;Add to Current Problems : NO Not Available [facility] 7 08:47:42 Generali zed anxiety disorder 49477721 Active 2012 Location : None;Sev erity: Moderate ;Progres s: Stable;A dded By: Angelia Galicia;Add to Current Problems : NO Not Available [facility] 2 12:04:41 History of urinary disease 930187919 Completed 201304/11/2020 Location : None;Sev erity: Moderate ;Progres s: Stable;A dded By: Angelia Galicia;Add to Current Problems : NO FELICITAS Medina Attn: Accounting ,[address] [place], [address] , [facility] 0 11:22:30 Spontane ous ecchymos is 825849881 Completed 201303/25/2014 Location : None;Sev erity: Moderate ;Progres s: Stable;A dded By: Angelia Galicia;Add to Current Problems : NO Not Available [facility] 7 08:47:42 Head and neck swelling 395756870 Completed 201509/22/2015 Location : None;Sev erity: Moderate ;Progres s: Stable;A dded By: Angelia Galicia;Add to Current Problems : YES Not Available [facility] 7 08:47:42 Neoplasm of uncertai n behavior of skin 57492423 Completed 201509/22/2015 Location : None;Sev erity: Moderate ;Progres s: Stable;A dded By: Angelia Galicia;Add to Current Problems : NO Not Available [facility] 7 08:47:42 Dizzines s and giddines s 149883371 Completed 201505/18/2019 Location : None;Sev erity: Moderate ;Progres s: Stable;A dded By: Angelia Galicia;Add to Current Problems : NO FELICITAS Medina Attn: Accounting ,[address] [place], [address] , [facility] 0 13:04:08 Candidia sis of mouth 45092810 Completed 201503/24/2016 Location : None;Sev erity: Moderate ;Progres s: Stable;A dded By: Angelia Galicia;Add to Current Problems : NO Not Available [facility] 7 08:47:42 Shoulder joint pain 977651920 Completed 201209/02/2012 Location : None;Sev erity: Moderate ;Progres s: Stable;A dded By: Haritha Horne i;[place] dd to Current Problems : NO Not Available [facility] 7 08:47:42 Localize d, primary osteoart hritis of the shoulder region 642849843 Completed 201205/25/2020 Location : None;Sev erity: Moderate ;Progres s: Stable;A dded By: Haritha Horne i;[place] dd to Current Problems : NO FELICITAS Medina Attn: Accounting ,[address] [place], [address] , [facility] 1 10:32:24 Joint effusion of ankle AND/OR foot 7966298 Completed 201301/13/2014 Location : None;Sev erity: Moderate ;Progres s: Stable;A dded By: Haritha Horne i;[place] dd to Current Problems : NO Not Available [facility] 7 08:47:43 Long-ter m drug therapy Completed 201205/18/2019 Location : None;Sev erity: Moderate ;Progres s: Stable;A dded By: Jo Ann Sosa;Add to Current Problems : YES FELICITAS Medina Attn: Accounting ,[address] [place], [address] , [facility] 0 13:04:17 Hyperlip idemia 53128428 Active 2012 Location : None;Sev erity: Moderate ;Progres s: Stable;A dded By: Jo Ann Sosa;Add to Current Problems : YES Not Available [facility] 2 12:04:41 Viral screenin g Completed 201510/01/2015 Location : None;Sev erity: Moderate ;Progres s: Stable;A dded By: Jo Ann Sosa;Add to Current Problems : NO Not Available [facility] 7 08:47:45 Gastroes ophageal reflux disease 235705065 Active 2012 Location : None;Sev erity: Moderate ;Progres s: Stable;A dded By: Sherlyn Sousa; Add to Current Problems : YES Not Available [facility] 2 12:04:41 Problem Notes None recorded. Procedures Surgical History Date Name Laterality Status Provider Name and Address Organization Details Recorded Time 11/09/19 20 release of trigger finger completed Aramis Knott MA [facility] 2020 11:14:02 06/30/19 20 Unlisted px foot/toes completed Aramis Knott MA [facility] 2020 11:12:39 04/10/20 19 Carpal tunnel surgery completed Aramis Knott MA [facility] 2020 11:13:39 09/09/19 19 replacement of right knee joint completed Aramis Knott MA [facility] 01/26/2019 09:51:29 05/11/18 76 [facility] 11/27/2016 10:38:29 05/11/18 66 [facility]end[facility]2016 10:38:20 [facility]/27/2016 10:38:42 Imaging Results Imaging Date Name Status LastModified by Organization Details LastModified Time 04/15/[id number] completed [address], [address], 04/15/2023 17:28:26 04/15/2023 use echocardiogram W con completed [address], [address], 04/15/2023 17:28:27 05/22/2023 lower extremity nerve conduction study (PROC) completed [facility] Emg -Nerve Conduction Study [address] [place], [address], 05/27/2023 12:04:52 06/30/2023 bone density completed [facility] [address] [place], [address], 07/01/2023 14:32:12 10/20/2023 MAMMO, screening, tomosynthesis, bilateral completed [facility] [address], [address], 10/26/2023 15:07:46 10/28/2023 US, breast, unilateral completed [address], [address], 10/31/2023 12:05:32 10/28/2023 MAMMO, diagnostic, unilateral completed [address], [address], 10/31/2023 12:05:32 10/30/2023 nm bone scan 3 phase completed [address], [address], 10/31/2023 20:19:15 10/30/2023 NM, bone scan completed [address], [address], 10/31/2023 20:19:08 01/22/2024 XR, toe(s) completed [place] [address] [place], [address], 01/25/2024 22:40:43 01/25/2024 XR, toe(s) completed [facility] Patient Access Centralized Scheduling Centralized Scheduling [address] [place] [address] [place], [address], 02/13/2024 20:35:48 03/22/2024 electrocardiogram completed [facility] [address] [place] [address] [place], [address], 03/25/2024 14:00:24 03/22/2024 electrocardiogram completed [address], [address], 03/23/2024 13:15:09 03/22/2024 electrocardiogram completed [address] [place], [address], 03/25/2024 14:00:24 03/22/2024 electrocardiogram completed [address] [place], [address], 04/01/2024 12:26:04 05/02/2024 MAMMO, diagnostic, unilateral completed [facility] [address] [place], [address], 05/03/2024 15:05:29 Procedure Notes None recorded. Medical Equipment None Reported. Allergies Allergen ID Allergen Name Allergen Category Reaction Reaction Severity Criticality Documentation Date Start Date Code Code System Note Provider Name and Address Organization Details Recorded Time [id number] e7824 hydrochlo rothiazid e medicatio n facial swelling Not available Not available 07/27/20182018 5487 RxNorm tongu e Not Available Not Available Not Available [id number] 5e23d amlodipin e medicatio n edema Not available Not available 07/29/2018 04953 RxNorm Not Available Not Available Not Available [id number] [id number] 2824e Product containin g penicilli n and antibioti c (product) medicatio n Not available Not available Not available 05/14/20162012 12407 05 SNOMED Sever ity: Moder ate; Comme nt: rash; Aller gy Type: Adver se React ion; Not Available Not Available Not Available [id number] [id number] 2824e Substance with sulfonami de structure and antibacte rial mechanism of action (substanc e) medicatio n Not available Not available Not available 05/14/20162012 91753 8003 SNOMED Sever ity: Moder ate; Comme nt: rash; Aller gy Type: Adver se React ion; Not Available Not Available Not Available [id number] [id number] 2824e Keflex medicatio n Not available Not available Not available 05/14/2016201216 7 RxNorm Sever ity: Moder ate; Comme nt: rash; Aller gy Type: Adver se React ion; Not Available Not Available Not Available [id number] [id number] 2824e erythromy loren medicatio n Not available Not available Not available 05/14/20162012 4053 RxNorm Sever ity: Moder ate; Comme nt: vomit ing;A llerg y Type: Adver se React ion; Not Available Not Available Not Available [id number] 1169280y0 2824e Medrol medicatio n Not available Not available Not available 05/14/2016201270 2 RxNorm Sever ity: Moder ate; Comme nt: felt stran ge;St opRea son: Incor rect infor matio n;All ergy Delet ed On: 08/02;A llerg y Type: Adver se React ion; Not Available Not Available Not Available [id number] [id number] 35c0f Betadine medicatio n rash moderate Not available 05/14/2016201275 0 RxNorm React ion: rash; Sever ity: Moder ate; Comme nt: Aller gy Type: Adver se React ion; Not Available Not Available Not Available [id number] 35c0f chlorthal idone medicatio n rash moderate Not available 05/14/20162012 2409 RxNorm React ion: rash; Sever ity: Moder ate; Comme nt: Aller gy Type: Adver se React ion; Not Available Not Available Not Available [id number] 117a9 Product containin g angiotens in-conver ting enzyme inhibitor (product) medicatio n cough moderate Not available 05/14/20162013 02157 009 SNOMED React ion: cough ;Hanh rity: Moder ate; Comme nt: Aller gy Type: Aller gy; Not Available Not Available Not Available [id number] 0900596m3 2824e morphine sulfate medicatio n Not available Not available Not available 05/14/20162014 35306 RxNorm Sever ity: Moder ate; Comme nt: Aller gy Type: Aller gy; Not Available Not Available Not Available Medications Name Sig Start Date Stop Date Status Note LastModified by Organization Details LastModified Time myrbetriq 50 mg tb24 11/09 completed Not Available Not Available Not Available esomepraz ole magnesium 20 mg cpdr 11/09 completed Not Available Not Available Not Available metoprolo l tartrate 50 mg tabs 11/09 completed Not Available Not Available Not Available bupropion hydrochlo ride er (sr) 150 mg tb12 11/09 completed Not Available Not Available Not Available meloxicam 15 mg tabs 11/09 completed Not Available Not Available Not Available pravastat in sodium 20 mg tabs 11/09 completed Not Available Not Available Not Available citalopra m hydrobrom tammy 20 mg tabs 11/09 completed Not Available Not Available Not Available alprazola m 1 mg tabs 04/11 completed Not Available Not Available Not Available spironola ctone 50 mg tabs 11/09 completed Not Available Not Available Not Available losartan 50 mg tablet TAKE 1 TABLET BY MOUTH EVERY DAY active Not Available Not Available No t Available furosemid e 40 mg tablet 1 po daily prn 05/09 completed RxNorm: 370010;A llow Substitu tion: True Not Available Not Available Not Available methocarb anjali 500 mg tablet TAKE ONE TABLET BY MOUTH THREE TIMES DAILY NEEDED FOR MUSCLE SPASMS 03/06 completed Not Available Not Available Not Available clotrimaz ole 10 mg jimmie DISSOLVE 1 LOZENGE BY MOUTH FOUR TIMES DAILY FOR 14 DAYS 10/25 completed Not Available Not Available Not Available bupropion HCl SR 150 mg tablet,12 hr sustained -release TAKE 3 tablets daily in the AM 09/14 completed Not Available Not Available Not Available promethaz ine-DM 6.25 mg-15 mg/5 mL oral syrup Take 5 mL every 6 hours by oral route as needed. 06/03 completed Not Available Not Available Not Available nystatin 100,000 unit/mL oral suspensio n 06/30 completed Not Available Not Available Not Available oxybutyni n chloride ER 15 mg tablet,ex tended release 24 hr TAKE 1 TABLET BY MOUTH EVERY NIGHT AT BEDTIME 05/17 completed Not Available Not Available Not Available doxycycli ne hyclate 100 mg capsule TAKE 1 CAPSULE BY MOUTH TWICE DAILY FOR 7 DAYS active Not Available Not Available No t Available Ciloxan 0.3 % eye ointment 08/10 completed Not Available Not Available Not Available clindamyc in HCl 300 mg capsule TAKE ONE CAPSULE BY MOUTH EVERY 6 HOURS X 7 DAYS 05/13 completed Not Available Not Available Not Available citalopra m 40 mg tablet TAKE 1 TABLET BY MOUTH EVERY DAY 08/10 completed Not Available Not Available Not Available trazodone 50 mg tablet TAKE 1 TABLET BY MOUTH EVERY NIGHT 09/14 completed Not Available Not Available Not Available azithromy loren 250 mg tablet TAKE 2 TABLETS (500 MG) BY ORAL ROUTE ONCE DAILY FOR 1 DAY THEN 1 TABLET (250 MG) BY ORAL ROUTE ONCE DAILY FOR 4 DAYS 06/03 completed Not Available Not Available Not Available alprazola m 1 mg tablet 04/18 completed Not Available Not Available Not Available ofloxacin 0.3 % eye drops 04/18 completed Not Available Not Available Not Available fluconazo le 150 mg tablet Take 1 tablet twice a week by oral route. 01/26 completed Not Available Not Available Not Available metoprolo l succinate ER 50 mg tablet,ex tended release 24 hr one po daily 06/03 completed Not Available Not Available Not Available atenolol 100 mg tablet one - half tablet Po daily 12/31 completed Not Available Not Available Not Available citalopra m 10 mg tablet Take 1 tablet every day by oral route. 10/25 completed Not Available Not Available Not Available valacyclo vir 1 gram tablet TAKE 1 TABLET BY MOUTH EVERY 12 HOURS FOR 7 DAYS 04/05 completed Not Available Not Available Not Available hydrocodo ne 5 mg-acetam inophen 325 mg tablet 04/11 completed Not Available Not Available Not Available bacitraci n 500 unit/gram eye ointment Apply 1 applicat ion 3 times a day by ophthalm ic route. 08/10 completed Not Available Not Available Not Available meloxicam 15 mg tablet TAKE 1 TABLET BY MOUTH EVERY DAY active Not Available Not Available No t Available lisinopri l 20 mg tablet one PO daily 08/08 completed RxNorm: [id number] llow Substitu tion: True Not Available Not Available Not Available ondansetr on HCl 4 mg tablet Take one po BID as needed active Not Available Not Available No t Available prednison e 20 mg tablet Take 2 tablets every day by oral route with meal(s) for 5 days, for laryngit is, don't take after 3PM. active Not Available Not Available No t Available fluoroura cil 5 % topical cream 08/17 completed Not Available Not Available Not Available metoprolo l succinate ER 100 mg tablet,ex tended release 24 hr Take 1.5 tablets every day by oral route as directed . active Not Available Not Available No t Available sertralin e 100 mg tablet TAKE 1 TABLET BY MOUTH DAILY 01/21 completed Not Available Not Available Not Available atenolol 25 mg tablet take one tablet po daily 07/[address] Galicia should be the prescrib ing MD;RxNor m: [id number] llow Substitu tion: True Not Available Not Available Not Available phentermi ne 15 mg capsule 04/21 completed Not Available Not Available Not Available Flonase 50 mcg/actua tion nasal spray,viv pension 2 spray(s) in each nostril daily 04/22 completed RxNorm: [id number] llow Substitu tion: True Not Available Not Available Not Available acetamino phen 300 mg-codein e 30 mg tablet 06/25 completed Not Available Not Available Not Available ciproflox acin 250 mg tablet TAKE 1 TABLET BY MOUTH TWICE DAILY FOR 7 DAYS DIRECTED 04/24 completed Not Available Not Available Not Available levofloxa loren 250 mg tablet TAKE 1 TABLET BY MOUTH EVERY 12 HOURS FOR 7 DAYS DIRECTED 11/13 completed Not Available Not Available Not Available amlodipin e 5 mg tablet Take 1 tablet every day by oral route. 07/29 completed Not Available Not Available Not Available ciproflox acin 500 mg tablet 12/31 completed Not Available Not Available Not Available hydrocodo ne 10 mg-acetam inophen 325 mg tablet 09/29 completed Not Available Not Available Not Available omeprazol e 40 mg capsule,d elayed release TAKE 1 CAPSULE BY MOUTH EVERY DAY active Not Available Not Available No t Available aspirin 81 mg tablet,de layed release TAKE 1 TABLET BY MOUTH TWICE DAILY 09/04 completed Not Available Not Available Not Available tramadol 50 mg tablet TAKE 1 TABLET BY MOUTH THREE TIMES DAILY NEEDED 03/06 completed Not Available Not Available Not Available levothyro xine 25 mcg tablet TAKE 1 TABLET BY MOUTH EVERY DAY 09/03 completed Not Available Not Available Not Available lamotrigi ne 25 mg tablet TAKE 2 TABLETS BY MOUTH EVERY NIGHT AT BEDTIME 04/21 completed Not Available Not Available Not Available levothyro xine 75 mcg tablet TAKE 1 TABLET BY MOUTH EVERY DAY 09/03 completed Not Available Not Available Not Available Promethaz ine VC-Codein e 6.25 mg-5 mg-10 mg/5 mL oral syrup Take 1 teaspoon by mouth q 4 to 6 hr 10/07 completed RxNorm: [id number] arabellaw Substitu tion: True Not Available Not Available Not Available levothyro xine 100 mcg tablet TAKE 1 TABLET BY MOUTH EVERY DAY active Not Available Not Available No t Available oxycodone -acetamin ophen 5 mg-325 mg tablet 04/18 completed Not Available Not Available Not Available alprazola m 0.25 mg tablet TAKE 1 OR 2 TABLET BY MOUTH ONE HOUR PRIOR TO DENTAL APPT. 10/07 completed Not Available Not Available Not Available citalopra m 20 mg tablet Take 1 tablet every day by oral route. 09/14 completed taking 0.5 tablet daily Not Available Not Available Not Available prednisol one acetate 1 % eye drops,viv pension 11/09 completed Not Available Not Available Not Available amlodipin e 10 mg tablet TAKE 1 TABLET BY MOUTH DAILY 11/05 completed Not Available Not Available Not Available levothyro xine 50 mcg tablet TAKE 1 TABLET BY MOUTH EVERY DAY 07/18 completed Not Available Not Available Not Available hydrocodo ne 7.5 mg-acetam inophen 325 mg tablet TAKE 1 TABLET BY MOUTH EVERY 6 HOURS NEEDED FOR PAIN OR ACUTE PAIN 04/21 completed Not Available Not Available Not Available erythromy loren 5 mg/gram (0.5 %) eye ointment APPLY 1 CM RIBBON INTO THE LOWER CONJUNCT IVAL SAC(S) IN THE AFFECTED EYE(S) BY OPHTHALM IC ROUTE 3 TIMES PER DAY 11/13 completed Not Available Not Available Not Available esomepraz ole magnesium 40 mg capsule,d elayed release TAKE ONE CAPSULE BY MOUTH TWICE DAILY 03/31 completed Not Available Not Available Not Available metoprolo l tartrate 50 mg tablet TAKE 1 TABLET BY MOUTH TWICE DAILY 04/26 completed Not Available Not Available Not Available mupirocin calcium 2 % topical cream 2023 active Not Available Not Available Not Avai lable oxybutyni n chloride ER 5 mg tablet,ex tended release 24 hr TAKE 1 TABLET BY MOUTH in the AM and 2 po at bedtime 09/29 completed Not Available Not Available Not Available pravastat in 20 mg tablet TAKE 1 TABLET BY MOUTH DAILY active Not Available Not Available No t Available hydrochlo rothiazid e 25 mg tablet TAKE 1 TABLET BY MOUTH DAILY 08/03 completed Not Available Not Available Not Available mupirocin 2 % topical ointment APPLY A SMALL AMOUNT TO THE AFFECTED AREA AND IN NOSTIRIL S TWICE DAILY X 2 WEEKS 04/05 completed Not Available Not Available Not Available gabapenti n 100 mg capsule 04/18 completed Not Available Not Available Not Available ergocalci ferol (vitamin D2) 1,250 mcg (50,000 unit) capsule TAKE 1 CAPSULE BY MOUTH EVERY WEEK FOR 12 DAYS DIRECTED 08/26 completed Not Available Not Available Not Available levofloxa loren 750 mg tablet 12/31 completed Not Available Not Available Not Available methylpre dnisolone 4 mg tablets in a dose pack FOLLOW PACKAGE DIRECTIO NS 01/10 completed Not Available Not Available Not Available ketorolac 60 mg/2 mL intramusc ular solution Inject 2 mL by intramus cular route. 03/06 completed dh Not Available Not Available Not Available oxybutyni n chloride 5 mg tablet TAKE 1 TABLET BY MOUTH TWICE DAILY 01/26 completed Not Available Not Available Not Available ondansetr on 4 mg disintegr ating tablet DISSOLVE 1 TABLET ON THE TONGUE EVERY 6 HOURS NEEDED FOR NAUSEA 04/05 completed Not Available Not Available Not Available losartan 100 mg tablet one po daily 04/21 completed Not Available Not Available Not Available sertralin e 50 mg tablet TAKE 1 TABLET BY MOUTH DAILY 01/21 completed Not Available Not Available Not Available doxycycli ne hyclate 100 mg tablet TAKE 1 TABLET BY MOUTH TWICE DAILY FOR 10 DAYS 04/30 completed Not Available Not Available Not Available atenolol 50 mg tablet TAKE 1 TABLET BY MOUTH DAILY 06/25 completed Not Available Not Available Not Available lamotrigi ne 100 mg tablet TAKE 2 TABLETS BY MOUTH DAILY AT BEDTIME active Not Available Not Available No t Available naproxen 500 mg tablet Take 1 tablet twice a day by oral route as needed. 02/24 completed Not Available Not Available Not Available spironola ctone 50 mg tablet TAKE 1 TABLET BY MOUTH EVERY DAY 04/21 completed Not Available Not Available Not Available diazepam 5 mg tablet 06/25 completed Not Available Not Available Not Available esomepraz ole magnesium 20 mg capsule,d elayed release TAKE ONE CAPSULE BY MOUTH TWICE DAILY 09/04 completed Not Available Not Available Not Available oxycodone 5 mg tablet TAKE 1 TABLET BY MOUTH EVERY 6 HOURS NEEDED FOR PAIN 05/13 completed Not Available Not Available Not Available Pneumovax -23 25 mcg/0.5 mL injection syringe 06/25 completed Not Available Not Available Not Available bupropion HCl XL 300 mg 24 hr tablet, extended release TAKE 1 TABLET BY MOUTH DAILY IN THE MORNING active Not Available Not Available No t Available bupropion HCl XL 150 mg 24 hr tablet, extended release TAKE 1 TABLET BY MOUTH EVERY MORNING active Not Available Not Available No t Available mirtazapi ne 7.5 mg tablet 04/24 completed Not Available Not Available Not Available nitrofura ntoin monohydra te/macroc rystals 100 mg capsule TAKE 1 CAPSULE BY MOUTH TWICE DAILY FOR 5 DAYS DIRECTED 10/07 completed Not Available Not Available Not Available duloxetin e 30 mg capsule,d elayed release TAKE 1 CAPSULE BY MOUTH EVERY DAY 01/23 completed Not Available Not Available Not Available duloxetin e 60 mg capsule,d elayed release TAKE 2 CAPSULES BY MOUTH DAILY active Not Available Not Available No t Available solifenac in 10 mg tablet TAKE 1 TABLET BY MOUTH EVERY DAY AT BEDTIME active Not Available Not Available No t Available levothyro xine 0.75 mg daily 04/24 completed Not Available Not Available Not Available chlorthal idone Take 1 tablet(s ) by mouth daily 04/25 completed Allow Substitu tion: True Not Available Not Available Not Available aripipraz ole 2 mg tablet TAKE 1 TABLET BY MOUTH DAILY 08/26 completed Not Available Not Available Not Available Biotene Moisturiz ing Mouth mucosal spray Take 1 applicat ion 5 times a day by mucous route as needed. 11/09 completed Not Available Not Available Not Available levothyro xine 25 mcg capsule active Not Available Not Available Not Available Viibryd 40 mg tablet 05/07 completed Not Available Not Available Not Available Myrbetriq 50 mg tablet,ex tended release TAKE 1 TABLET BY MOUTH EVERY DAY 08/17 completed Not Available Not Available Not Available Myrbetriq 11/09 completed Not Available Not Available Not Available Viibryd 10 mg (7)-20 mg (23) tablets in a dose pack TAKE DIRECTED WITH MEALS 04/24 completed Not Available Not Available Not Available Vraylar 1.5 mg capsule TAKE 1 CAPSULE BY MOUTH AT BEDTIME EVERY OTHER DAY 04/05 completed Not Available Not Available Not Available Fluzone High-Dose 7822-1919 (PF) 180 mcg/0.5 mL intramusc ular syringe 02/24 completed Not Available Not Available Not Available Fluzone High-Dose (PF) 180 mcg/0.5 mL intramusc ular syringe 06/03 completed Not Available Not Available Not Available Fluzone High-Dose (PF) 180 mcg/0.5 mL intramusc ular syringe 04/18 completed Not Available Not Available Not Available ID NOW COVID-19 Test Kit TEST DIRECTED TODAY 01/10 completed Not Available Not Available Not Available Fluzone High-Dose Quad (PF) 240 mcg/0.7 mL IM syringe 05/25 completed Not Available Not Available Not Available Gemtesa 75 mg tablet Take 1 tablet every day by oral route. 07/02 completed Not Available Not Available Not Available Paxlovid 300 mg (150 mg x 2)-100 mg tablets in a dose pack Take 1 dose pk by oral route as directed . 05/18 completed Not Available Not Available Not Available Vitals Date Recorded Body height Provider Name an d Address Organization Details Last Updated DateTime 04/21/2023 157.48 cm AMINATA Anderson [facility] 04/21/20 11:10:35 Date Recorded Body mass index (BMI) Body weight Provider Name and Address Organization Details Last Updated DateTime 04/21/2023 30.1 kg/m2 23156.95 g AMINATA Anderson [facility] 04/21/2023 11:12:27 Date Recorded Oxygen saturation Oxygen saturation in Arterial blood by Pulse oximetry Provider Name and Address Organization Details Last Updated DateTime 04/21/2023 94 % 94 % AMINATA Anderson [facility] 04/21/2023 11:12:30 Date Recorded Heart rate Provider Name an d Address Organization Details Last Updated DateTime 04/21/2023 78 /min AMINATA Anderson [facility] 04/21/20 11:12:32 Date Recorded Body temperature Provider Name a nd Address Organization Details Last Updated DateTime 04/21/2023 97.8 [degF] AMINATA Anderson [facility] 023 11:12:36 Date Recorded Body height Provider Name an d Address Organization Details Last Updated DateTime 10/08/2023 157.48 cm AMINATA Marlow [facility] 2023 13:53:56 Date Recorded Body mass index (BMI) Body weight Provider Name and Address Organization Details Last Updated DateTime 10/08/2023 30 kg/m2 93801.87 g AMINATA Marlow [facility] 10/08/2023 13:54:01 Date Recorded Body temperature Provider Name a nd Address Organization Details Last Updated DateTime 10/08/2023 97.1 [degF] AMINATA Marlow [facility] 10/08/2023 14:00:57 Date Recorded Oxygen saturation Oxygen saturation in Arterial blood by Pulse oximetry Provider Name and Address Organization Details Last Updated DateTime 10/08/2023 97 % 97 % AMINATA Marlow [facility] 10/08/2023 14:01:08 Date Recorded Heart rate Provider Name an d Address Organization Details Last Updated DateTime 10/08/2023 62 /min Christie AMINATA Orellana [facility] 2023 14:01:14 Date Recorded Body height Provider Name an d Address Organization Details Last Updated DateTime 01/22/2024 157.48 cm Parisa Kult AMINATA [facility] 024 14:26:49 Date Recorded Body mass index (BMI) Body weight Provider Name and Address Organization Details Last Updated DateTime 01/22/2024 30.4 kg/m2 00651.03 g Parisa Babin AMINATA [facility] 01/22/2024 14:27:11 Date Recorded Body temperature Provider Name a nd Address Organization Details Last Updated DateTime 01/22/2024 98.5 [degF] Parisaari Babin MA [facility] 2023 14:28:39 Date Recorded Heart rate Provider Name an d Address Organization Details Last Updated DateTime 01/22/2024 70 /min Parisa Babin MA [facility] 024 14:28:42 Date Recorded Oxygen saturation Oxygen saturation in Arterial blood by Pulse oximetry Provider Name and Address Organization Details Last Updated DateTime 01/22/2024 96 % 96 % Parisa Kult AMINATA [facility] 01/22/2024 14:28:47 Date Recorded Body height Provider Name an d Address Organization Details Last Updated DateTime 04/05/2024 157.48 cm Gladys Guillermo MA [facility] 2023 13:49:35 Date Recorded Body mass index (BMI) Body weight Provider Name and Address Organization Details Last Updated DateTime 04/05/2024 30.5 kg/m2 68566.93 g Gladys Guillermo MA [facility] 04/05/2024 13:49:40 Date Recorded Oxygen saturation Oxygen saturation in Arterial blood by Pulse oximetry Provider Name and Address Organization Details Last Updated DateTime 04/05/2024 96 % 96 % Gladys Guillermo MA [facility] 04/05/2024 13:50:21 Date Recorded Heart rate Provider Name an d Address Organization Details Last Updated DateTime 04/05/2024 75 /min Gladysluis carlos GuillermoAMINATA [facility] 2023 13:50:23 Date Recorded Body temperature Provider Name a nd Address Organization Details Last Updated DateTime 04/05/2024 97.8 [degF] Gladysluis carlos GuillermoAMINATA [facility] 04/05/2024 13:50:25 Date Recorded Body height Provider Name an d Address Organization Details Last Updated DateTime 05/13/2024 157.48 cm Reyes Malik MA [facility] 05/13 12:15:20 Date Recorded Body mass index (BMI) Body weight Provider Name and Address Organization Details Last Updated DateTime 05/13/2024 30 kg/m2 58578.15 g Reyes Malik MA [facility] 05/13/2024 12:15:26 Date Recorded Body temperature Provider Name a nd Address Organization Details Last Updated DateTime 05/13/2024 97.5 [degF] Reyes Malik MA [facility] 05/13/2024 12:22:20 Date Recorded Oxygen saturation Oxygen saturation in Arterial blood by Pulse oximetry Provider Name and Address Organization Details Last Updated DateTime 05/13/2024 96 % 96 % Reyes Malik MA [facility] 05/13/2024 12:22:23 Date Recorded Heart rate Provider Name an d Address Organization Details Last Updated DateTime 05/13/2024 65 /min Reyes Malik MA [facility] 05/13 12:22:28 Date Recorded Systolic blood pressure Diastolic blood pressure Provider Name and Address Organization Details Last Updated DateTime 04/21/2023 126 mm[Hg] 85 mm[Hg] Gayle Stephen MA [facility] 04/21/2023 11:14:40 Date Recorded Systolic blood pressure Diastolic blood pressure Provider Name and Address Organization Details Last Updated DateTime 10/08/2023 138 mm[Hg] 78 mm[Hg] FELICITAS Medina Attn: Accounting,[address] [facility], [place], [address], [facility] 10/08/2023 14:32:00 Date Recorded Systolic blood pressure Diastolic blood pressure Provider Name and Address Organization Details Last Updated DateTime 01/22/2024 120 mm[Hg] 84 mm[Hg] Parisa Babin MA [facility] 01/22/2024 14:28:52 Date Recorded Systolic blood pressure Diastolic blood pressure Provider Name and Address Organization Details Last Updated DateTime 04/05/2024 138 mm[Hg] 79 mm[Hg] FELICITAS Medina Attn: Accounting,[address] [facility], [place], [address], [place] - [facility] 04/05/2024 14:15:46 Date Recorded Systolic blood pressure Diastolic blood pressure Provider Name and Address Organization Details Last Updated DateTime 05/13/2024 145 mm[Hg] 76 mm[Hg] Reyes Malik [place] [facility] 05/13/2024 12:22:44 Social History Question Answer Notes LastModified by Organizat ion Details LastModified Time Tobacco Smoking Status Former Smoker quit date: 1[employer] [place], [place] - [facility] 06/30/2018 09:58:14 Do You Have An Advance Directive? Yes Information not available 09/14/2020 What Is Your Level Of Alcohol Consumption? None Information not available 08/17/2020 Are You Blind Or Do You Have Difficulty Seeing? No Information not available 09/14/2020 What Is Your Level Of Caffeine Consumption? Moderate Information not available 08/17/2020 In The 14 Days Before Symptom Onset, Have You Had Close Contact With A Laboratory-confir med COVID-19 While That Case Was Ill? No Information not available 09/14/2020 In The 14 Days Before Symptom Onset, Have You Had Close Contact With A Person Who Is Under Investigation For COVID-19 While That Person Was Ill? No Information not available 09/14/2020 Have You Been To An Area Known To Be High Risk For COVID-19? No Information not available 09/14/2020 Are You Currently Employed? No Information not available 09/14/2020 Are You Deaf Or Do You Have Serious Difficulty Hearing? No Information not available 09/14/2020 What Type Of Diet Are You Following? REGULAR Information not available 09/14/2020 What Was The Date Of Your Most Recent Tobacco Screening? 05/13/2024 [email or web address] Information not available 05/13/2024 What Is Your Relationship Status? Information not available 09/14/2020 Do You Use Your Seat Belt Or Car Seat Routinely? Yes Information not available 09/14/2020 Do You Have Smoke And Carbon Monoxide Detectors In Your Home? Yes Information not available 09/14/2020 Are You Passively Exposed To Smoke? No Information no t available 09/14/2020 Do You Feel Stressed (tense, Restless, Nervous, Or Anxious, Or Unable To Sleep At Night)? [id number] Information not available 09/14/2020 Do You Use Any Illicit Or Recreational Drugs? No [email or web address] Information not available 10/25/2020 Has Tobacco Cessation Counseling Been Provided? No [email or web address] Information not available 09/04/2022 How Many Years Have You Smoked Tobacco? 40 Information not available 08/17/2020 Do You Or Have You Ever Used Any Other Forms Of Tobacco Or Nicotine? No Information not available 08/17/2020 Sex: Female Functional Status Question Answer Note LastModified by Organizat ion Details LastModified Time Are you able to care for yourself? Yes Information not available 09/14/2020 What is your exercise level? Occasional Information not available 09/14/2020 Mental Status None recorded. Family History Relationship Description Onset Age of this Age Resolved Age Notes LastModified by Organization Details LastModified Time Paternal Grandfather Coronary arterioscler osis [email or web address] Not available 10:38:53 Maternal Grandfather Coronary arterioscler osis [email or web address] Not available 10:39:04 Mother Type 2 diabetes mellitus [email or web address] Not available 10:39:20 Maternal Grandmother Type 2 diabetes mellitus [email or web address] Not available 10:39:20 Medical History No medical history recorded. Gynecological History Statement/Question Response Menses Monthly N Obstetrics History GPAL:G 0 P 0 0 0 0 Immunizations Vaccine Type Date Status Note Provider Nam e and Address Organization Details Recorded Time Influenza, high-dose, trivalent, PF 9 completed Not Available [facility] 16:29:14 Influenza, high-dose, trivalent, PF 9 completed FELICITAS Medina Attn: Accounting[address] [facility], [place], [place], [address] [place] [address], [place] - [facility] 04/21/2023 11:53:44 Influenza, high-dose, quadrivalent, PF 0 completed FELICITAS Medina Attn: Accounting[address] [facility], [place], [place], [address] [place] [address], [place] - [facility] 04/21/2023 11:53:44 Influenza, high-dose, quadrivalent, PF 0 completed FELICITAS Medina Attn: Accounting[address] [facility], [place], [place], [address] [place] [address], [place] - [facility] 04/21/2023 11:53:44 COVID-19, mRNA, LNP-S, PF, 100 mcg/0.5mL dose or 50 mcg/0.25mL dose 1 completed FELICITAS Medina Attn: Accounting[address] [facility], [place], [place], [address] [place] [address], [place] - [facility] 04/21/2023 11:53:44 COVID-19, mRNA, LNP-S, PF, 100 mcg/0.5mL dose or 50 mcg/0.25mL dose 1 completed FELICITAS Medina Attn: Accounting[address] [place], [place], [address] [place] [address], [place] - [facility] 04/21/2023 11:53:44 COVID-19, mRNA, LNP-S, PF, 100 mcg/0.5mL dose or 50 mcg/0.25mL dose 2 completed FELICITAS Medina Attn: Accounting[address] [place], [place], [address] [place] [address], [place] - [facility] 04/21/2023 11:53:44 COVID-19, mRNA, LNP-S, bivalent, PF, 50 mcg/0.5 mL or 25mcg/0.25 mL dose 2 completed Aramis Knott MA null, [place] - [facility] 03/06/2022 14:25:10 zoster recombinant 2 completed FELICITAS Medina Attn: Accounting[address] [facility], [place], [place], [address] [place] [address], [place] - [facility] 04/21/2023 11:53:44 zoster recombinant 2 completed FELICITAS Medina Attn: Accounting[address] [facility], [place], [place], [address] [place] [address], [place] [facility] 04/21/2023 11:53:44 Influenza, high-dose, quadrivalent, PF 2 completed FELICITAS Medina Attn: Accounting,204 1 [facility], [place], [address] [place] [address], [place] [facility] 04/21/2023 11:53:44 Influenza, adjuvanted, quadrivalent, PF 3 completed FELICITAS Medina Attn: Accounting,204 1 [facility], [place], [address] [place] [address], [place] [facility] 04/21/2023 11:53:44 Influenza, adjuvanted, quadrivalent, PF 1 completed FELICITAS Medina Attn: Accounting,204 1 [facility], [place], [address] [place] [address], [place] [facility] 04/21/2023 11:53:44 COVID-19, mRNA, LNP-S, PF, 100 mcg/0.5mL dose or 50 mcg/0.25mL dose 1 completed FELICITAS Medina Attn: Accounting,204 1 [facility], [place], [address] [place] [address], [place] [facility] 04/21/2023 11:53:44 COVID-19, mRNA, LNP-S, bivalent, PF, 50 mcg/0.5 mL or 25mcg/0.25 mL dose 3 completed FELICITAS Medina Attn: Accounting,204 1 [facility], [place], [address] [place] [address], [place] [facility] 04/21/2023 11:53:44 RSV, recombinant, protein subunit RSVpreF, adjuvant reconstituted, 0.5 mL, PF 3 completed FELICITAS Medina Attn: Accounting,204 1 [facility], [place], [address] [place] [address], [place] [facility] 04/21/2023 11:53:44 COVID-19, mRNA, LNP-S, PF, 50 mcg/0.5 mL 3 completed FELICITAS Medina Attn: Accounting,204 1 [facility], [place], [address] [place] [address], [place] [facility] 04/21/2023 11:53:44 pneumococcal polysaccharide PPV23 7 completed FELICITAS Medina Attn: Accounting,204 1 [facility], [place], [address] [place] [address], [place] [facility] 04/21/2023 11:53:44 Pneumococcal conjugate PCV 13 6 completed FELICITAS Medina Attn: Accounting,204 1 [facility], [place], [address] [place] [address], [place] [facility] 04/21/2023 11:53:44 Influenza, high-dose, trivalent, PF 8 completed FELICITAS Medina Attn: Accounting,204 1 [facility], [place], [address] [place] [address], [place] [facility] 04/21/2023 11:53:44 Influenza, high-dose, trivalent, PF 6 completed FELICITAS Medina Attn: Accounting,204 1 [facility], [place], [address] [place] [address], [place] [facility] 04/21/2023 11:53:44 Influenza, high-dose, trivalent, PF 7 completed FELICITAS Medina Attn: Accounting,204 1 [facility], [place], [address] [place] [address], [place] [facility] 04/21/2023 11:53:44 Influenza, split virus, quadrivalent, PF 4 completed FELICITAS Medina Attn: Accounting,204 1 [facility], [place], [address] [place] [address], [place] [facility] 04/21/2023 11:53:45 COVID-19, mRNA, LNP-S, PF, 50 mcg/0.5 mL 4 completed FELICITAS Medina Attn: Accounting,204 1 [place], [address], [place] [facility] 04/05/2024 14:06:52 Influenza, high-dose, trivalent, PF 4 completed FELICITAS Medina Attn: Accounting,204 1 [place], [address], [place] [facility] 04/05/2024 14:06:52 Tdap 2 completed FELICITAS Medina Attn: Accounting,204 1 [place], [address], [place] [facility] 03/10/2022 08:21:35 Influenza, split virus, trivalent, PF 3 completed Not Available [facility] 08/25/2021 16:29:14 Influenza, split virus, trivalent, PF 4 completed Not Available [facility] 08/25/2021 16:29:14 Tdap 4 completed Not Available [facility] 08/25/2021 16:29:15 Td (adult), 2 Lf tetanus toxoid, preservative free, adsorbed 5 completed Not Available [facility] 08/25/2021 16:29:15 Influenza, split virus, trivalent, preservative 0 completed Not Available [facility] 08/25/2021 16:29:14 Pneumococcal conjugate PCV20, polysaccharide TLP167 conjugate, adjuvant, PF 4 completed AMINATA [place], [place] [facility] 10/08/2023 15:02:29 Pneumococcal conjugate PCV 13 5 completed Not Available [facility] 08/25/2021 16:29:15 Past Encounters Encounter ID Performer Location Encounter Start Date Encounter Closed Date Diagnosis/Indication Diagnosis SNOMED-CT Code Diagnosis ICD10 Code Diagnosis Note [id number] Angelia Galicia [facility] [address] [place] [address] 07/24/2016 16:23:58 07/24/2016 18:12:23 Inflammation of sacroiliac joint 78398804 M46.1 left Generalize d anxiety disorder 97225091 F41.1 [id number] Haritha melgar [facility] [address] [place] [address] 11/27/2016 16:14:02 11/27/2016 17:48:39 Localized, primary osteoarthritis of the shoulder region 701452752 M19.019 Mixed anxi ety and depressive disorder 698956204 F41.8 Low back pain 762671601 M54.5 [id number] [facility] [address] [place] [address] 12/31/2016 11:04:32 12/31/2016 14:56:17 Pneumonia 735428865 J18.9 now breathing better Candidiasis of mouth 797 36793 B37.0 has mycelex troches at home [id number] Moy Aguilar MD [facility] [address] [place] [address] 01/20/2017 13:37:06 01/20/2017 14:41:10 Benign essential hypertension 4699225 I10 Dyspnea 881511634 R06.00 [id number] [facility] [address] [place] [address] 02/24/2017 12:13:07 02/25/2017 16:42:36 Localized, primary osteoarthritis of the shoulder region 664316653 M19.019 Generalize d anxiety disorder 29988993 F41.1 Benign ess ential hypertension 1035440 I10 [id number] NITA RENO [facility] [address] [place] [address] 03/26/2017 09:49:33 03/26/2017 14:55:40 Benign essential hypertension 5143819 I10 bp controlled today. continue amlodipine 10mg. f/u in 3 mos on BP [id number] [facility] [address] [place] [address] 06/25/2017 09:17:16 06/25/2017 12:28:27 Benign essential hypertension 3857707 I10 Mixed hyperlipidemia 267 188263 E78.2 Urgent barrett anatoly to urinate 52641494 R39.15 Acute conjunctivitis 537 87704 H10.33 having eyelid surgery Gastroesop hageal reflux disease 094217192 K21.9 Mixed anxi ety and depressive disorder 761875313 F41.8 Screening for malignant neoplasm of colon 191763381 Z12.11 Inflammati on of sacroiliac joint 51359624 M46.1 left [id number] Angelia Galicia [facility] [address] [place] [address] 08/10/2017 11:34:44 08/10/2017 16:22:35 Benign essential hypertension 5020422 I10 Sciatica 37196760 M54.32 [id number] FELICITAS Medina [facility] [address] [place] [address] 03/31/2018 11:16:36 04/02/2018 09:51:32 Acute sinusitis 22304754 J01.90 Lung field abnormal 2747 71056 R91.8 Cough 58236420 R05 [id number] Haritha melgar [facility] [address] [place] [address] 06/03/2018 13:32:33 06/04/2018 08:49:10 Pain in calf 170857121 M79.669 positive Neri's Dependent edema 94026323 4 R60.0 will decrease the amlodipine to 1/2 tab daily. If BP not <140/90 on the lower dose of amlodipine , we will increase the metoprolol to BID. Polyuria 53542372 R35.8 Urge incon tinence of urine 43251706 N39.41 Dyspnea 120866084 R06.00 [id number] Haritha melgar [facility] [address] [place] [address] 06/30/2018 09:55:13 06/30/2018 16:52:08 Easy bruising 271956528 R58 Essential hypertension 24714002 I10 Edema of l ower extremity 868067184 R60.0 resolved [id number] FELICITAS Medina [facility] [address] [place] [address] 08/03/2018 13:52:27 08/04/2018 09:17:43 Benign essential hypertension 0379247 I10 will stop the amlodipine altogether and continue metoprolol and spironolac tone. Will call if BP > 130/90 Nausea 437834219 R11.0 intermitte nt. 3-4 times a month Urge incon tinence of urine 44367696 N39.41 no caffeine after noon, increase nighttime dose to 2 po at betime and one in the AM Weight gain 5589532 R63. 5 [id number] Angelia Galicia [facility] [address] [place] [address] 09/29/2018 13:49:17 09/29/2018 15:38:25 Inflammation of sacroiliac joint 02695600 M46.1 left Postoperative care 57990 9007 Z48.89 Edema of l ower extremity 247368145 R60.0 Candidiasis of mouth 797 72484 B37.0 has mycelex troches at home Urgent barrett anatoly to urinate 52797495 R39.15 [id number] FELICITAS Medina [facility] [address] [place] [address] 10/18/2018 13:26:24 10/18/2018 15:55:47 Flap laceration of skin 837312124 T14.8XXA print out RX for doxycyclin e in case redness, worsening pain, recurrent purulent discharge, to protect her knew TKR Candidiasis of mouth 797 72451 B37.0 will avoid citris, acid, soda, sugar if tongue worsens will take the diflucan [id number] FELICITAS Medina [facility] [address] [place] [address] 11/05/2018 11:04:06 11/05/2018 13:37:21 Xerostomia 14780266 K11.7 likely due to anticholin ergic for overactive bladder Chronic glossitis 847221 001 K14.0 likely from dry mouth, will try biotene products and call if no better, doubt thrush Edema of luis carlos senior extremity 186884229 R60.0 likely from her TKR 6 weeks ago, scar looks great, knee with some minimal edema but looks good [id number] Angelia Galicia [facility] [address] [place] [address] 01/26/2019 09:34:07 01/26/2019 11:29:01 Benign essential hypertension 0420703 I10 Pre-surger y evaluation 752634800 Z01.446 [id number] FELICITAS Medina [facility] [address] [place] [address] 04/18/2019 13:57:08 04/18/2019 15:43:23 Increased frequency of urination 140280091 R35.0 [id number] FELICITAS Medina [facility] [address] [place] [address] 05/17/2019 09:33:58 05/17/2019 12:12:25 History of urinary disease 884124874 Z87.448 Mixed urin yves incontinence 227190556 N39.46 continue Myrbetriq at night, and talk to her urologist about possibilit y of surgery. June 21 is her foot surgery, so she needs to discuss surgical options SOHAIL. [id number] FELICITAS Medina [facility] [address] [place] [address] 11/10/2019 09:22:55 11/10/2019 11:35:28 Mass of neck 782196428 R22.1 likely benign since it hasn't grown, but will have evaluated Abnormal weight gain 161 574838 R63.5 will wean off of the citalopram , cut in have and take half daily for 2 weeks and then stop. Will call to discuss further weight loss assistance if no luck with DC SSRI and trying to change eating habits. [id number] FELICITAS Medina [facility] [address] [place] [address] 2020 10:12:50 2020 13:57:59 Generalized anxiety disorder 88982870 F41.1 Benign ess ential hypertension 4851805 I10 Depressive disorder 3548 9007 F32.9 will increase her citalopram to 20mg daily to take at bedtime to help with compliance . She has her safety plan in place and all of the suicide hotline numbers. Continues twice a week counseling which has kept her a float. I will reach out to her in a couple of weeks to f/u. Vitamin D deficiency 347 95642 E55.9 Hyperlipidemia 41434397 E78.5 will schedule routine fasting labs in the near future Overactive urinary bladder 624051626 N32.81 [id number] FELICITAS Medina [facility] [address] [facility] [place] [address] 04/25/2020 09:23:42 04/26/2020 14:54:48 Generalized anxiety disorder 05342409 F41.1 Depressive disorder 3548 9007 F32.9 with the increase in the citalopram it's hard to tell the difference . Discussed with the grief counselor that she didn't want to take the medication in fear that it will erase Lisa and her memory . Got very upset. ONly taking the 10mg which is what she was taking before. Started taking it in the AM because it was keeping her up at night. We discussed the mechanism of action again, that it's not numbing her at all, and that she isn't resorting to those products and substances that do. Reassured her that it really may help her through the grieving process. Flushing 052521044 R23.2 will have lab next Thursday and will review with her on Thursday and review her BP with her. [id number] FELICITAS Medina [facility] [address] [place] [address] 05/25/2020 10:00:40 05/25/2020 12:50:24 Benign essential hypertension 8708410 I10 MUCH better control today, no changes for now. Hypothyroidism 55602445 E03.9 just started thyroid supplement 3 weeks ago. We discussed her depression , weight gain and that maybe the thyroid med may provide some improvemen t on both of those issues. Will wait 2 more months and have her come in for another in office visit for weight and BP check. If BP remains stable and weight remains the same, will consider phentermin e therapy at low dose very short term. Overweight 570517183 E66 .3 [id number] FELICITAS Medina [facility] [address] [place] [address] 07/18/2020 13:56:02 07/18/2020 17:38:22 Benign essential hypertension 1910219 I10 better control today, no changes for now. Depressive disorder 8597 9006 F32.9 increased her citalopram to 20mg daily last visit Hypothyroidism 35405984 E03.9 just started thyroid supplement 3 months ago, will recheck her thryoid levels today Overactive urinary bladder 021230986 N32.81 stop myrbetriq and let's try vesicare at night before bed, stressed no caffeine after noon. Obesity 101559309 E66.9 discussed regular exercise and healthy dietary choices to supplement the phentermin e. She needs to call me with any bump in her BP and f/u in 4 weeks to assess her weight loss. [id number] FELICITAS Medina [facility] [address] [place] [address] 08/17/2020 09:24:07 08/20/2020 12:35:24 Overweight 579126211 E66.3 will continue phentermin e, no increase in dose since she has had successful loss in one month and still with HTN. No c/o or side effects today. will f/u in 2 months Depressive disorder [address] Mcdermott today at 11:00 [id number] FELICITAS Medina [facility] [address] [place] [address] 09/14/2020 13:38:55 09/17/2020 11:03:56 Hordeolum externum of lower eyelid of left eye 8171114200 18739 H00.015 Candidiasis of mouth 797 03728 B37.0 will avoid citris, acid, soda, sugar if tongue worsens will take the diflucan Depressive disorder 5289006 F32.9 doing better with group therapy and [facility] with new psychiatri st improved, feeling better. It's Lisa's birthday today, and she is handling it ok [id number] FELICITAS Medina [facility] [address] [place] [address] 10/25/2020 14:23:08 10/28/2020 23:03:43 Depressive disorder 10344378 F32.9 doing better with group therapy and [facility] ip with new psychiatri st improved Hypothyroidism 64313407 E03.9 Overweight 017854503 E66 .3 will continue low dose phentermin e with her improved BP, weight loss and increased mobility and activity, improved pain. Plan will be to f/u in 3 months and discontinu e. She may discontinu e anytime she feels ready in the mean time. Retention of urine 94288 4002 R33.9 discussed stimulants being potential cause, her difficulty starting stream has been for over a year, not worsening, never fell urinary retention. [id number] Rachelle Villagomez MA [facility] [address] [place] [address] 11/09/2020 09:34:35 11/09/2020 13:17:35 Low back pain 984439729 M54.5 [id number] FELICITAS Medina [facility] [address] [place] [address] 11/13/2020 14:28:29 11/14/2020 12:59:58 Delay when starting to pass urine 7007035 R39.11 discussed stopping phentermin e for 2-3 weeks, if bladder retention continues, then will cut vesicare in half for a 5mg dose and if no help again, will seek urology consult Glossitis 01803964 K14.0 likely from her dry mouth, lozenges for dry mouth to continue, will have B12 level drawn if tongue no better Xerostomia 31251374 K11. 7 likely due to anticholin ergic for overactive bladder, she is going to stop the phentermin e and then half the vesicare to see if this helps with her bladder retention symptoms and dry mouth. [id number] Aramis Knott MA [facility] [address] [place] [address] 01/23/2021 13:51:57 01/23/2021 17:19:13 Otalgia of left ear 1788062064 518764 H92.02 exam clear, has had hearing tested and has hearing aids for prn use with crowds. Benign ess ential hypertension 8494796 I10 better control today, no changes for now. Hyperlipidemia 69428728 E78.5 continue statin, will fast for annual labs in April at her next visit Hypothyroidism 03951617 E03.9 will check in April tsh and t4 Screening for malignant neoplasm of breast 802092014 Z12.39 Screening for malignant neoplasm of colon 832535863 Z12.11 declines her colonoscop y she is due for this year, open to cologaurd Dysuria 50260080 R30.9 chronic problem with send out for UA and culture no dip. [id number] Patricia Hurley LPN [facility] [address] [facility] [address] [place] [address] 02/07/2021 09:46:40 02/07/2021 12:23:44 Urinary tract infectious disease 57453235 N39.0 [id number] FELICITAS Medina [facility] [address] [facility] [address] [place] [address] 04/24/2021 09:32:20 04/25/2021 08:41:56 Adult health examination 298872867 Z00.00 Health Risk Assessment collected and reviewed. [place] in January normal, up to date on covid booster and influenza. Has urology appt. Benign ess ential hypertension 3412489 I10 great control today, no changes for now. Hyperlipidemia 66435193 E78.5 continue statin, fasting for annual labs Vitamin D deficiency 347 18490 E55.9 takes calcium and vitamin D occasional ly, and not walking as much due to the weather, was biking regularly. Screening for malignant neoplasm of breast 688055717 Z12.39 schedule for May at [facility]. Hypothyroidism 67054048 E03.9 Impairment of balance 38 9422892 R26.89 Recurrent urinary tract infection 691955121 N39.0 [id number] FELICITAS Medina [facility] [address] [facility] [address] [place] [address] 05/07/2021 09:10:05 05/07/2021 12:54:53 Depressive disorder 65098388 F32.9 Long discussion about her hospitaliz ation, her new medication , her good experience with dr. Durand, and her OP care that she is continuing with. She is hopeful that her new medication is the right combinatio n. She recognizes she is in a much better place than she was a year ago, now using her grief experience to help others and she enjoys that and feels fulfilled. She will let me know how her visit with her psychiatri st goes tomorrow. [id number] FELICITAS Medina [facility] [address] [place] [address] 08/26/2021 13:23:12 08/28/2021 10:57:24 Lumbar radiculopathy 662410522 M54.16 if no better, will consider further imaging Ct or MRI pending ability to have MRI with joint replacemen ts. L2-3 severe narrowing on xray reviewed with Marley. May add tylenol arthritis [id number] FELICITAS Medina [facility] [address] [place] [address] 01/10/2022 14:10:11 01/10/2022 15:40:53 Dog bite of hand 719015812 S61.451A keep elevated, wash, keep an eye on any worsening signs, and will start antibiotic s, but today 48 hours after the bite, looking really good, unlikely to get infected, tetanus is UTD. Depressive disorder 3548 9007 F32.9 Long discussion about her current new plan with her new psychiatri st and her DBT planned through virtual treatment, and her long time therapist Cyndi through [facility] . [id number] Sherlyn Marinelli LPN [facility] [address] [place] [address] 01/21/2022 14:05:39 01/21/2022 20:59:51 Dysuria 11766147 R30.9 [id number] Patricia Hurley LPN [facility] [address] [place] [address] 01/31/2022 09:41:52 01/31/2022 12:38:42 Increased frequency of urination 569764061 R35.0 [id number] FELICITAS Medina [facility] [address] [place] [address] 03/06/2022 14:07:13 03/07/2022 18:01:18 Dog bite of hand 378928668 S61.451A Cleaned and steri stripped as per PE sections. Keep elevated, wash, keep an eye on any worsening signs, and will start antibiotic s, but today 24 hours after the bite, looking really good, may not get infected, tetanus we will update Administra tion of diphtheria, pertussis, and tetanus vaccine 803780048 Z23 [id number] FELICITAS Medina [facility] [address] [place] [address] 07/03/2022 10:46:24 07/03/2022 18:14:20 Supraspinatus tear 169675458 M75.111 cleared with out restrictio n. All recent labs reviewed, and vital good today Gastroesop hageal reflux disease 549985550 K21.9 if 20mg once daily not helpful and keeps GERD symptoms at bay, will increase to 40mg daily, insurance not paying for #60 per month [id number] Patricia Hurley LPN [facility] [address] [place] [address] 07/11/2022 10:58:15 07/11/2022 13:39:32 Urinary tract infectious disease 50238672 N39.0 [id number] FELICITAS Medina [facility] [address] [place] [address] 09/04/2022 13:57:34 09/05/2022 10:29:23 Benign essential hypertension 4374623 I10 great today, will initiate phentermin e again and will discontinu e when she has her surgery since she will be on opiates. Tolerated phentermin e in the past with no trouble. Dysuria 98968784 R30.9 dip normal, but recurrent UTIS with normal dips at times, will send macrobid in case this weekend symptoms worsen, otherwise will push fluids and await culture. Difficulty initiating bladder emptying 777522513 R39.11 Overweight 340490738 E66 .3 will start low dose phentermin e with her improved BP, weight loss and increased mobility and activity, improved pain. Will dc at surgery and restart after opiates are complete. Chronic cough 03452418 R 05.3 will have CXR done preop if no CXR in the last year since her tickle cough began. Requesting records from both hospitals locally. [id number] Patricia Hurley LPN [facility] [address] [place] [address] 11/21/2022 14:59:07 11/21/2022 16:53:02 Urinary tract infectious disease 19228355 N39.0 [id number] FELICITAS Medina [facility] [address] [place] [address] 04/21/2023 10:45:00 04/21/2023 16:24:41 Adult health examination 020132822 Z00.00 Health Risk Assessment collected and reviewed. colon cancer and breast cancer screening UTD, due for cologuard in 2023 fall, but says she will decline. Obesity 701875381 E66.9 discussed regular exercise and healthy dietary choices. Discussed wegovy and saxenda, will check insurance coverage. Also discussed phentermin e, and will talk to cardiology about their thoughts. Menopause present 855202 006 N95.1 sees bone health provider 2020 at [place], osteopenia , repeat bone density in a year recommende d, will order. Still taking calcium and vit D regularly, will reassess stability Recurrent falls 25646378 2 R29.6 with some reported leg weakness. Will check NCV study LEs. Benign ess ential hypertension 9777767 I10 great today, will stop spironolac tone to see if that helps her dry mouth and urinary issues, we have room to increase losartan if needed. No LE edema at all any longer without CCB Hyperlipidemia [id number] E78.5 fasting today Hypothyroidism [id number] E03.9 Actinic keratosis 541165 007 L57.0 after care wound care discussed Seborrheic keratosis 394 448057 L82.1 [id number] FELICITAS Medina [facility] [address] [place] [address] 10/08/2023 13:47:25 10/12/2023 09:45:48 Benign essential hypertension 8222402 I10 fairly stable today. No changes, she will continue to occasional ly monitor her BP but not several times a day, continue low salt diet, and try to exercise regularly. Screening for malignant neoplasm of colon [id number] Z12.11 Would still have colonoscop y if she were positive on Cologuard, agrees to cologuard screening Administra tion of pneumococcal vaccine [id number] Z23 [id number] FELICITAS Medina [facility] [address] [place] [address] 01/22/2024 14:15:29 01/24/2024 09:26:45 Injury of little toe [id number] S99.922A sees Damari concepcion, will try to get xrays there, if can't will get at [facility] orthopedic center Lesion of tongue 4302221 05 K14.9 will refer for biopsy considerat ion Herpes simplex 80645648 B00.9 nasal, 2 weeks, started just above the lip and then spread the nare [id number] FELICITAS Medina [facility] [address] [place] [address] 04/05/2024 13:41:18 04/05/2024 16:43:32 Adult health examination [id number] Z00.00 Health Risk Assessment collected and reviewed. UTD on all vaccines, just had annual lab for preop PX. Mammogram 11.01, bone density 07/04 Screening for malignant neoplasm of colon 181146168 Z12.11 cologuard 2020, due for repeat Benign ess ential hypertension 5765779 I10 fairly stable today. No changes, she will continue to occasional ly monitor her BP but not several times a day, continue low salt diet, and try to exercise regularly. Arthritis of finger of left hand [id number] M13.951 [id number] Stanton [facility] [address] [place] [address] 05/13/2024 11:48:15 05/19/2024 10:31:10 Impairment of balance 238812129 R26.89 Need to see if balance issues is from her left hip vs neurologic ataxia. Fever 224890998 R50.9 no meds yet today. Pain of le ft hip joint [id number] 52446 M25.552 will xray and get PT assessment for hip pain and gait/kriss ce eval. Dyspnea on exertion 6084 5006 R06.09 Jesus , stress test, worsening this week likely due to COVID COVID-19 [id number] U07.1 Stay very hydrated. Monitor for red flag symptoms like SOB, pleuritic CP, swelling or extreme weakness. Continue tylenol as needed for Headaches or fever.. Contagion reviewed, use common sense, and stay home and public masking until no fevers for 24 hours and feeling much improved. Health Concerns Section Related Observation LastModified by Organization Detai ls LastModified Time None Recorded Concern Status LastModified by Organization Details LastModified Time None Recorded Advance Directives Directive Y: Payers Encounter Date Sequence Insurance Name Policy Number Policy Guadarrama Covered Member ID Guadarrama Member ID Guarantor Name 04/21/2023 1 [employer] (MEDICARE REPLACEMENT PPO) [id number] Amira Gonzales [id number] Amira Gonzales 10/08/2023 1 [employer] (MEDICARE REPLACEMENT PPO) [id number] Amira Gonzales [id number] Amira Gonzales 01/22/2024 1 [employer] (MEDICARE REPLACEMENT PPO) [id number] 1 Amira Gonzales [id number] Amira Gonzales 04/05/2024 1 [employer] (MEDICARE REPLACEMENT PPO) [id number] Amira Gonzales [id number] Amira Gonzales 05/13/2024 1 [employer] (MEDICARE REPLACEMENT PPO) [id number] Amira Gonzales [id number] Amira Gonzales Notes Date Note Type Note Provider Name and Address Organization Details Recorded Time 04/21/2023 text/html MAW 2Reported bypatient.Diet and Nutrition:diet is high in salt;diet is high in fat, low in fiber;high caloric intake;high carbohydrate meals Fracture Risk:no sudden unexplained fractures;history of fractures Concentration and Memory:decreased concentrating ability;memory lapses or loss;forgetting words Speech/Motor difficulties:no speech difficulties; no difficulty expressing formulated concepts; no difficulty with fine manipulative tasks; no slowed reaction time; does not knock things over when trying to pick them up;difficulty writing/copying Hearing:wears hearing aids Vision:no vision problems Activities of Daily Living:able to bathe with limited or no assistance; able to contol urination and bowels; able to dress with limited or no assistance; able to feed self with limited or no assistance; able to get out of chair or bed with limited or no assistance; able to groom with limited or no assistance; able to toilet with limited or no assistance Instrumental Activities of Daily Living:able to do house work with limited or no assistance; able to grocery shop with limited or no assistance; able to manage medications with limited or no assistance; able to manage money with limited or no assistance; able to prepare meals with limited or no assistance; able to use the phone with limited or no assistance Falls Risk Assessment:no dizziness/vertigo; fall(s) in the past year 3; fall(s) since last visit3;frequent falls while walking Home Safety:no unsafe catherine hazzards; no unsafe stairs; working smoke/CO detectors; has hand bars in the bathroom/shower; good lighting in the homeNotes:fell 3 times at [employer], thinks her foot got caught on the carpet, but also fell on a loose mat at [facility], and grabbed for a post and jammed in her shoulder and had the worst pain of her life at . That same night had 12 sharp stabbing like an ice pick, but gone since then. Had a nuclear bone scan with Lala.Has appt with cardiology Dr. Lee. Recent stress test 04/15, chemically induced bc she flew off the [employer] .Lots of low back pain, sees massage therapist twice a week, helping. No numbness in her legs ore weakness, but feels less strength on a stool one legged. FELICITAS Medina Attn: Accounting[address] [place], [address], [facility] 04/21/2023 13:55:01 10/08/2023 text/html Hypertension F/UReported bypatient.Associated Symptoms:no dizziness; no chest pain; no palpitations; no edema; no calf pain with exertion;lightheadedne ss;shortness of breath Lifestyle:not exercising regularly;high salt intake Medications:taking medications as directed; no side effects from medication; checks blood pressure at home, range: (140-170 / 70-80)Notes:Was feeling like she couldn't take a deep breath, during a zoom meeting. Was feeling uptight around her old counselor since this May. Thinks it was panic attack. BP has been at goal since then for the most part, only elevated for that day.Has 2 weeks of BP readings. also having some trouble with balance as well. feels unsteady when walking, has to hold on to furniture when walking at home. Has fallen a few times this past year. has BP readings today FELICITAS Medina Attn: Accounting[address] [facility], [place], [address], [facility] 10/12/2023 09:42:36 01/22/2024 text/html Generic HPI TemplateReported bypatient.Location:[place]:Also c/o left 5th toe injury, fell out of bed and it bent and bruised and now doesn't move. Also c/o lep and nasal scabbing and lesions over the past 10 days-2 weeks. Has never had a cold sore. Sore on tongue on the underside of the tongue has had it for years. FELICITAS Medina Attn: Accounting[address] [facility], [place], [address], [facility] 01/22/2024 15:13:03 04/05/2024 text/html MAW 2Reported bypatient.Diet and Nutrition:high carbohydrate meals Fracture Risk:no sudden unexplained fractures;history of fractures Concentration and Memory:decreased concentrating ability;memory lapses or loss;forgetting words Speech/Motor difficulties:no speech difficulties; no difficulty expressing formulated concepts; no difficulty with fine manipulative tasks; no difficulty writing/copying; no slowed reaction time; does not knock things over when trying to pick them up Hearing:wears hearing aids Vision:blurred vision(right eye) Activities of Daily Living:able to bathe with limited or no assistance; able to contol urination and bowels; able to dress with limited or no assistance; able to feed self with limited or no assistance; able to get out of chair or bed with limited or no assistance; able to groom with limited or no assistance; able to toilet with limited or no assistance Instrumental Activities of Daily Living:able to do house work with limited or no assistance; able to grocery shop with limited or no assistance; able to manage medications with limited or no assistance; able to manage money with limited or no assistance; able to prepare meals with limited or no assistance; able to use the phone with limited or no assistance Falls Risk Assessment:no frequent falls while walking; no fall since last visit; fall(s) in the past year 4;dizziness/vertigo Home Safety:no unsafe catherine hazzards; no unsafe stairs; working smoke/CO detectors; practicing 'safer sex'; no fire arms; has hand bars in the bathroom/shower; good lighting in the home FELICITAS Medina Attn: [address] [place], [address], [facility] 04/05/2024 14:31:18 05/13/2024 text/html Generic HPI TemplateReported bypatient.Location:[facility] Duration:pt noticed her balance being off around summer Associated Symptoms:SOBNotes: night started, barking like a dog. Thursday very achy, temp up and down. Sinus congestion. Coughing up sputum. Feels much better today. pt says she fell twice in 3 days about a week ago. Feels off all the time, but episodes when upright that she feels she may fall, like she is staggering like she is drunk but hasn't been drinking. Left hip pain, for a long time, worse more recently, feels she may also be not lifting up that left foot.pt would like for you to take over anxiety and depression meds. Still cries a lot. FELICITAS Medina Attn: Accounting[address] [place], [address], [place] [facility] 05/19/2024 08:14:40 OBGyn Episode No OBEpisode recorded.
--- NOTE | 2024-06-03 07:21 | WPDANESEPPF ---
Anes - Initial Pre Proc Eval Procedure: Operation Date: 06/03/24 11:00 Proposed Procedures p Cystoscopy, Injection Bulking Agent - Benny Taveras MD Date/Time: 06/03/24 07:21 Surgeon: Benny Taveras MD Pre Op Diagnosis: ID Patient Data Age: 74 Gender: F Height: 1.52 m Weight: 74 kg Allergies Allergy/AdvReac Type Severity Reaction Status Date / Time morphine Allergy Severe unresponsiv Verified 06/03/24 09:44 e Penicillins Allergy Severe water Verified 06/03/24 09:44 blisters amlodipine Allergy Intermediate Swelling Verified 06/03/24 09:44 cephalexin (From Keflex) Allergy Intermediate rash Verified 06/03/24 09:44 povidone-iodine (From Allergy Intermediate rash Verified 06/03/24 09:44 Betadine) stainless steel Allergy Intermediate infection Verified 06/03/24 09:44 Sulfa (Sulfonamide Allergy Intermediate water Verified 06/03/24 09:44 Antibiotics) blisters erythromycin base Allergy vomiting Verified 06/03/24 09:44 hydrochlorothiazide Allergy Swelling Verified 06/03/24 09:44 Home Medications ?Medication ?Instructions ?Recorded ?Confirmed ?Type acetaminophen 650 mg 1,300 mg PO Q12H PRN pain 05/05/24 05/05/24 History tablet,extended release (8 Hour Pain Reliever) bupropion HCl 150 mg 24 hr tablet, 150 mg PO DAILY 05/05/24 05/05/24 History extended release bupropion HCl 300 mg 24 hr tablet, 300 mg PO DAILY 05/05/24 05/05/24 History extended release docusate sodium 100 mg capsule 100 mg PO DAILY 05/05/24 05/05/24 History (Colace) duloxetine 60 mg capsule,delayed 120 mg PO HS 05/05/24 05/05/24 History release lamotrigine 100 mg tablet 100 mg PO HS 05/05/24 05/05/24 History levothyroxine 25 mcg tablet 25 mcg PO DAILY 05/05/24 05/05/24 History losartan 50 mg tablet 50 mg PO DAILY 05/05/24 05/05/24 History meloxicam 15 mg tablet 15 mg PO DAILY 05/05/24 05/05/24 History metoprolol succinate 100 mg 200 mg PO DAILY 05/05/24 05/05/24 History tablet,extended release 24 hr omeprazole 40 mg capsule,delayed 40 mg PO DAILY 05/05/24 05/05/24 History release pravastatin 20 mg tablet 20 mg PO HS 05/05/24 05/05/24 History solifenacin 10 mg tablet 10 mg PO HS 05/05/24 05/05/24 History Patient hx anesthesia problems: none Family hx anesthesia problems: none Results Review: All pre-operative results and documents have been reviewed as part of the pre-operative evaluation. REPLACED BY [facility] Past Medical History Medical History (Updated 06/03/24 @ 07:21 by Robert Caldwell DO) PONV (postoperative nausea and vomiting) Depression Anxiety Hypothyroidism Hyperlipidemia Hypertension Surgical History Surgical History (Updated 06/03/24 @ 07:21 by Robert Caldwell DO) History of cholecystectomy History of appendectomy Social History Social History Smoking packs per day: 1 Smoking cigarettes per day: 20.0 Years smoked: 40 Smoking pack-years: 40.00 Smoking status: Former smoker Substance use: never Living arrangements: alone Spiritual care concerns: No Anes - Eval Final PreProcedure Day of Procedure 06/03/24 07:21 Patient weight: obese Heart: regular rate and rhythm Lungs: clear to auscultation Airway: Mallampati scale class II Neurological: alert and oriented Last oral intake: >/= 8 hours ASA classification: III Emergent: no Anesthetic plan: proceed Anesthesia type and monitoring: general GIVS and standard monitoring Results Review: All pre-operative results and documents have been reviewed as part of the pre-operative evaluation. Informed Consent: The patient's anesthetic plan and its attendant risks and benefits were discussed with the patient/family/POA. Questions were solicited and answers provided to the satisfaction of the patient/family/POA.
[2024-06-03 10:00] VITALS: BP 147/79; PULSE 67; RESP 14; TEMP 36.6; O2SAT 99
[2024-06-03] MEDS: LACTATED RINGERS 1,000 ML 30 ML IV CONT (10:30)
[2024-06-03] MEDS: levoFLOXacin 500 MG/D5W 100 ML 500 MG/100 ML BAG 100 MG IVPB (10:44)
[2024-06-03 11:02] VITALS: BP 115/61; PULSE 70; RESP 14; O2SAT 94
--- NOTE | 2024-06-03 11:03 | W.PM.PROC2 ---
Procedure Note - Detailed Date of Procedure 06/03/24 Pre-op Diagnosis Intrinsic sphincter deficiency Post-op Diagnosis Same Procedure Performed cystoscopy with suburethral injection of implant material Surgeon Benny Taveras MD Anesthesia MAC Indications along with intrinsic sphincter deficiency. Presents for injection of a bulking agent. Understands risks of bleeding, infection, lack of efficacy, incomplete efficacy, obstructive voiding requiring catheterization, need for ancillary procedures. She agrees to proceed Findings uncomplicated bulking agent Description of Procedure she was correctly identified. Informed consent obtained. From the operating room. She was positioned awake due to her hip pain. She was then given monitored anesthesia care. Cystoscopy revealed a normal appearing bladder. Urethra open consistent with intrinsic sphincter deficiency. I injected bulking agent circumferentially. I picked a site in the mid urethra 2 cm distal bladder neck. I used 1-1/2 syringe forming several pillows clapping the urethra. Her bladder was left partially full. She was awakened transferred to PACU in stable condition. Estimated Blood Loss 0 Drains No Packing No Pathology None sent Complications No immediate complications Condition Stable Disposition PACU
[2024-06-03 11:32] VITALS: BP 115/61; PULSE 68; RESP 16; O2SAT 99
[2024-06-03 12:02] VITALS: BP 119/54; PULSE 78; RESP 16
[2024-06-03 12:30] VITALS: BP 121/90; PULSE 78
[2024-06-03 13:00] VITALS: BP 157/75; PULSE 62
== END 2024-06-03 13:18 | disposition home or self-care (01) ==
PROVIDERS: PCP Physician Assistant; Visit Provider Urology
PROC: 3E0K8GC Introduction of Other Therapeutic Substance into Genitourinary Tract, Via Natural or Artificial Opening Endoscopic (ICD-10-PCS; CPT 51715; principal; 2024-06-03 11:00)
DX: N36.42 Intrinsic sphincter deficiency (ISD) (principal); E78.5 Hyperlipidemia, unspecified; I10 Essential (primary) hypertension; E03.9 Hypothyroidism, unspecified; F41.9 Anxiety disorder, unspecified; F32.A Depression, unspecified; E66.9 Obesity, unspecified; Z68.30 Body mass index [BMI] 30.0-30.9, adult; Z98.890 Other specified postprocedural states; Z90.49 Acquired absence of other specified parts of digestive tract; Z87.891 Personal history of nicotine dependence
CPT/HCPCS: 51715; J1956; J2704; J7120; L8606